=== PATIENT | male | born 1930 | race Caucasian/White ===

== ENCOUNTER 2016-07-20 10:51 | Outpatient (CLI) | payer MEDICARE, OTHER ==
[~2016-07-20] VITALS: Ht 188 cm; Wt 87.0 kg
[~2016-07-20 10:51] MED LIST: ACET-2723 PO; AMLO5TAB2 PO; ASCO500T9 PO; ASPI-1085 PO; BISA10SU8 RECTALLY; CLOP75TA PO; GABA-338 PO; HYDR59LO5 TOP; LISI-621 PO; META800T91 PO; METO-277 PO; MULT-933 PO; MV-M1TAB38 PO; NITR0.4T SL; NORMAL SALINE 1,000 ML IV ONE; NYST8800 TOP; TRAM50TA53 PO; VIT1CAPS5 PO; WARF2.5T73 PO
--- NOTE | 2016-07-20 11:05 | NUR ---
ADMIT PT ADMITTED TO ROOM 118. PT USING URINAL AT THIS TIME. STAFF TO HELP ASSIST THE PATIENT TO THE BED.
[2016-07-20 11:16] VITALS: Ht 188 cm; Wt 87.0 kg
[2016-07-20 11:26] VITALS: BP 141/69; PULSE 60; RESP 21; O2SAT 99
[2016-07-20] MEDS ORDERED: WARF1TAB6 PO (11:36)
[2016-07-20 11:39] LABS: BASOPHILS % (AUTO) 0.4 % (0-2); EOSINOPHILS # (AUTO) 0.4 T/MM3 (0-0.5); EOSINOPHILS % (AUTO) 4.4 % (0-4); HCT - HEMATOCRIT 37.4 % (41-53); HGB - HEMOGLOBIN 11.3 GM/DL (13.5-17.5); IMMATURE GRANULOCYTE # (AUTO) 0.01 T/MM3 (0.00-0.03); IMMATURE GRANULOCYTE % (AUTO) 0.1 % (0.0-0.5); LYMPHOCYTES # (AUTO) 0.9 T/MM3 (1-4.8); LYMPHOCYTES % (AUTO) 10.7 % (23-45); MEAN CORPUSCULAR HGB CONC(MCHC 30.2 GM/DL (31-37); MEAN CORPUSCULAR VOLUME 92.8 UM3 (80-100); MEAN PLATELET VOLUME 10.2 UM3 (9.4-12.4); MONOCYTES # (AUTO) 0.6 T/MM3 (0-0.8); MONOCYTES % (AUTO) 7.6 % (0-9.0); NEUTROPHILS #(AUTO)-ABSOLUTE 6.4 T/MM3 (1.8-7.7); NEUTROPHILS % (AUTO) 76.8 % (33-66); RED BLOOD COUNT 4.03 M/MM3 (4.50-5.90); WBC - WHITE BLOOD COUNT 8.3 T/MM3 (4.5-11.0)
[2016-07-20 11:44] LABS: INR 2.17 (0.76-1.04); PROTHROMBIN TIME 23.6 SEC (9.31-12.49)
[2016-07-20 11:50] LABS: ANION GAP 15 MEQ/L (5-15); BUN/CREATININE RATIO 24 RATIO (6-26); CALCIUM 9.3 MG/DL (8.4-10.2); CHLORIDE 105 MEQ/L (98-107); CO2 - CARBON DIOXIDE 25 MEQ/L (22-30); CREATININE 0.8 MG/DL (0.8-1.5); GLOMERULAR FILTRATION RATE 92; GLUCOSE 94 MG/DL (75-110); POTASSIUM 4.2 MEQ/L (3.6-5); SODIUM 145 MEQ/L (134-144)
--- NOTE | 2016-07-20 13:26 | NUR ---
CM CM IN TO VISIT PATIENT, HE IS A&O. IS AT THE BEDSIDE, ALONG WITH A MALE. PATIENT PLANS TO DISCHARGE HOME, DENIES NEEDS. CM CONTACT INFORMATION GIVEN. Addendum: 07/20/16 at 1327 by TU ELIZABETH RN Amended: Links added.
--- NOTE | 2016-07-20 14:47 | NUR ---
DISMISSAL WENT OVER WRITTEN DISMISSAL INSTRUCTIONS WITH PT, EMPHASIZING DATE AND TIME OF NEXT SCHEDULED PROCEDURE WELL WHEN TO STOP TAKING WARFARIN. BOTH PT AND PT'S VERBALIZED UNDERSTANDING. PT'S PERSONAL BELONGINGS GATHERED INCLUDING HOME MEDS, CELL PHONE. PT TAKEN OUT OF S.U. PER W/C BY [facility] STAFF TO ER ENTRANCE FOR TRANSPORT HOME BY .
== END 2016-07-20 14:47 | disposition home or self-care (01) ==
LOC: CATH 10:51 → SRG 10:53 → CATH 14:47
PROVIDERS: ATTEND Internal Medicine Cardiovascular Disease
DX: I70.201 Unspecified atherosclerosis of native arteries of extremities, right leg (principal); I25.10 Atherosclerotic heart disease of native coronary artery without angina pectoris; I48.0 Paroxysmal atrial fibrillation; I10 Essential (primary) hypertension; Z79.02 Long term (current) use of antithrombotics/antiplatelets; Z79.82 Long term (current) use of aspirin; Z79.899 Other long term (current) drug therapy; Z87.891 Personal history of nicotine dependence; Z82.49 Family history of ischemic heart disease and other diseases of the circulatory system
CPT/HCPCS: 36415; 80048; 85025; 85610; 93005

== ENCOUNTER 2016-08-02 11:10 | Outpatient (CLI) | payer MEDICARE, OTHER ==
[~2016-08-02] VITALS: Ht 188 cm; Wt 89.6 kg
[2016-08-02] VITALS (20 sets, daily range): BP systolic 132–175; BP diastolic 63–105; PULSE 57–71; RESP 17–38; TEMP 97.2–97.3; O2SAT 94–99; Ht 188 cm; Wt 89.6 kg
[~2016-08-02 11:10] MED LIST changes: -ACET-2723 PO; -ASCO500T9 PO; -ASPI-1085 PO; -BISA10SU8 RECTALLY; -HYDR59LO5 TOP; -META800T91 PO; -MULT-933 PO; -MV-M1TAB38 PO; -TRAM50TA53 PO; +WARF1TAB6 PO; -WARF2.5T73 PO
--- NOTE | 2016-08-02 11:18 | NUR ---
ARRIVAL ARRIVES TO ROOM 120 VIA WHEELCHAIR, ACCOMPANIED BY SPOUSE AND SON. PATIENT ALERT AND ORIENTED X3. O2 RA. PATIENT TRANSFERRED FROM WHEELCHAIR TO BED WITH ASSIST X2 FROM NURSING STAFF.
[2016-08-02] MEDS ORDERED: HYDR-4246 PO (11:48)
[2016-08-02] MEDS ORDERED: CHOL100055 PO (11:51)
[2016-08-02 11:52] LABS: HCT - HEMATOCRIT 34.4 % (41-53); HGB - HEMOGLOBIN 10.8 GM/DL (13.5-17.5); MEAN CORPUSCULAR HGB 28.3 UUG (26-34); MEAN CORPUSCULAR HGB CONC(MCHC 31.4 GM/DL (31-37); MEAN CORPUSCULAR VOLUME 90.1 UM3 (80-100); RED BLOOD COUNT 3.82 M/MM3 (4.50-5.90); WBC - WHITE BLOOD COUNT 7.3 T/MM3 (4.5-11.0)
[2016-08-02 12:01] LABS: ANION GAP 13 MEQ/L (5-15); BUN/CREATININE RATIO 26 RATIO (6-26); CALCIUM 9.1 MG/DL (8.4-10.2); CHLORIDE 107 MEQ/L (98-107); CO2 - CARBON DIOXIDE 25 MEQ/L (22-30); CREATININE 0.8 MG/DL (0.8-1.5); GLOMERULAR FILTRATION RATE 92; GLUCOSE 96 MG/DL (75-110); POTASSIUM 4.3 MEQ/L (3.6-5); SODIUM 145 MEQ/L (134-144)
[2016-08-02 12:09] LABS: EOSINOPHILS # (MANUAL) 0.2 T/MM3 (0-0.5); LYMPHOCYTES # (MANUAL) 0.3 T/MM3 (1-4.8); MONOCYTES # (MANUAL) 0.2 T/MM3 (0-0.8); NEUTROPHILS #(MANUAL)-ABSOLUTE 6.2 T/MM3 (1.8-7.7); REACTIVE LYMPHOCYTES # 0.4 T/MM3 (0-0); TOTAL CELLS COUNTED 100 %
[2016-08-02 12:25] LABS: INR 1.39 (0.76-1.04); PROTHROMBIN TIME 15.1 SEC (9.31-12.49)
[2016-08-02] MEDS ORDERED: FENTANYL 100mcg/2ml INJECTION ONE (12:26)
[2016-08-02] MEDS ORDERED: SALINE FLUSH 10ml SYRINGE ONE (12:26)
[2016-08-02] MEDS ORDERED: MIDAZOLAM 2mg/2ml INJECTION ONE (12:26)
--- NOTE | 2016-08-02 12:30 | NUR ---
OFF UNIT PATIENT TRANSFERRED FROM HOSPITAL BED TO [employer] CART VIA SLIDE BOARD AND ASSIST X2 FROM STAFF. IVF INFUSING. O2 RA. FAMILY ACCOMPANIED TO [employer] WAITING AREA.
[2016-08-02] MEDS ORDERED: LORAZEPAM 1 MG TABLET PO PRN (13:30)
[2016-08-02] MEDS ORDERED: MORPHINE SULFATE 4 MG SYRINGE IV PRN ×2 (13:30)
[2016-08-02] MEDS ORDERED: PROMETHAZINE 25 MG INJECTION IV PRN (13:30)
[2016-08-02] MEDS ORDERED: MAG-AL + SIM LIQUID 30 ML UDC PO PRN (13:30)
[2016-08-02] MEDS ORDERED: METOCLOPRAMIDE 10mg/2ml INJECTION IV PRN (13:30)
[2016-08-02] MEDS ORDERED: ONDANSETRON 4mg/2ml INJECTION IV PRN (13:30)
[2016-08-02] MEDS ORDERED: NITROGLYCERIN 0.4 MG SUBLINGUAL TABLET SL PRN ×2 (13:30→14:30)
[2016-08-02] MEDS ORDERED: BISACODYL 10 MG SUPPOSITORY RECTALLY PRN (13:30)
[2016-08-02] MEDS ORDERED: MILK OF MAGNESIA 30 ML SUSP PO PRN (13:30)
[2016-08-02] MEDS ORDERED: ATROPINE 1 MG/ML VIAL IV PRN (13:30)
[2016-08-02] MEDS ORDERED: BISACODYL 5 MG E.C. TABLET PO PRN (13:30)
[2016-08-02] MEDS ORDERED: ACETAMINOPHEN 325 MG TABLET PO PRN (13:30)
[2016-08-02] MEDS ORDERED: LORAZEPAM 2 MG/ML INJECTION IV PRN (13:30)
--- NOTE | 2016-08-02 13:35 | NUR ---
RETURN PATIENT RETURNS TO ROOM 120 VIA CART. PATIENT TRANSFERRED FROM CART TO BED VIA SLIDE BOARD AND ASSIST X2 FROM STAFF. DRESSING TO RIGHT GROIN C/D/I. PEDAL PULSES PRESENT PER DOPPLER. PATIENT DENIES PAIN, SHORTNESS OF AIR, OR CHEST PAIN AT THIS TIME. WILL CONTINUE TO MONITOR.
[2016-08-02] MEDS: HYDROCODONE/APAP 5 mg/325 mg TABLET PO PRN ×2 (14:14→15:08)
--- NOTE | 2016-08-02 14:33 | NUR ---
CM CM VISITED PT AND FAMILY. CM EXPLAINED ROLE AND PROVIDED CONTACT INFORMATION. PT PLANS TO RETURN HOME POST STAY AT [facility]. PT/SPOUSE ARE AWARE TO CONTACT CM IF NEEDS ARISE. SPOUSE DID MENTION THAT BATHING CAN BE A PROCESS BUT SHE FEELS THAT THEY ARE OK FOR NOW BUT WILL CONTACT CM IF THEY CHANGE THERE MIND. CM VERBALIZED.
[2016-08-02] MEDS ORDERED: WARFARIN 1 MG PO SCH (15:02)
[2016-08-02] MEDS: NYSTATIN POWDER 15gm BOTTLE TOP SCH ×2 (15:27→21:00)
--- NOTE | 2016-08-02 15:33 | CVPROF ---
August 02, [address] Sarbjit Stewart INDICATION The patient is a pleasant 68-year-old gentleman with history of peripheral arterial disease and was referred for percutaneous intervention after recent angiography showing high-grade stenosis of the right posterior tibial and peroneal arteries. INFORMED CONSENT Informed consent was obtained after explaining the procedure and the potential risks to the patient who agreed to proceed with the procedure. PROCEDURE 1. Right posterior tibial CISCO NETWORK ARCHITECT. 2. Right peroneal CISCO NETWORK ARCHITECT. 3. Mynx deployment for hemostasis. TECHNIQUE The patient was prepped and draped in the usual sterile techniques. Conscious sedation was performed by using Versed and fentanyl. Using modified Seldinger technique, arterial access was obtained into the right femoral artery in antegrade fashion with placement of a 6-Jamaican arterial sheath. Next, the sheath was exchanged for a 6-Jamaican 45 cm Destination sheath which was delivered into the popliteal artery. The lesion in posterior tibial artery was crossed using a Runthrough wire. A 3.5 x 30 balloon was delivered to the lesion site where it was inflated up to 14 atmospheres. Next angiogram showed excellent results with less than or equal to 20% residual stenosis. Next we exchanged a position of the wire into the distal peroneal artery. Previously used 3.5 x 30 balloon was delivered to the lesion site where it was inflated up to 14 atmospheres. The next angiogram showed excellent results with less than equal 10% residual stenosis. The patient tolerated the procedure well with no complications. Mynx was used for hemostasis. IMPRESSION 1. Successful CISCO NETWORK ARCHITECT of the right posterior tibial artery. 2. Successful CISCO NETWORK ARCHITECT of the right peroneal artery. 3. Successful Mynx deployment for hemostasis. PLAN Will keep him on aspirin daily and continue risk modification. [facility]
--- NOTE | 2016-08-02 19:42 | NUR ---
SHIFT SUMMARY PATIENT ALERT AND ORIENTED X3. DENIES CHEST PAIN, SHORTNESS OF BREATH. VITALS STABLE, O2 RA. PATIENT HAS BEEN FLAT IN BED MOST OF THE AFTERNOON DUE TO HEART CATH PROCEDURE. PATIENT REPOSITIONED WITH ASSIST X2 FROM NURSING STAFF. USES URINAL. PATIENT HAS NEEDED PRN NORCO FOR SOME DISCOMFORT THROUGHOUT SHIFT. SPOUSE AT BEDSIDE. CALL LIGHT WITHIN REACH, SIDE RAILS UP X2, BED IN LOWEST POSITION, AND BED ALARM ACTIVATED.
[2016-08-02] MEDS: PRESER VISION PO SCH (20:58)
[2016-08-02] MEDS: HYDROCODONE/APAP 5 mg/325 mg TABLET PO SCH (20:58)
[2016-08-02] MEDS ORDERED: LISINOPRIL 20 MG PO SCH (22:00)
[2016-08-02] MEDS ORDERED: POM GABAPENTIN 300 MG CAPSULE PO SCH (22:00)
--- NOTE | 2016-08-02 23:50 | NUR ---
Chart Check 24 hour chart check completed
[2016-08-03 04:10] VITALS: BP 164/76; PULSE 60; RESP 18; TEMP 97.9; O2SAT 96
[2016-08-03 05:04] LABS: BASOPHILS % (AUTO) 0.3 % (0-2); EOSINOPHILS # (AUTO) 0.2 T/MM3 (0-0.5); EOSINOPHILS % (AUTO) 2.6 % (0-4); HCT - HEMATOCRIT 34.8 % (41-53); HGB - HEMOGLOBIN 10.5 GM/DL (13.5-17.5); IMMATURE GRANULOCYTE # (AUTO) 0.01 T/MM3 (0.00-0.03); IMMATURE GRANULOCYTE % (AUTO) 0.2 % (0.0-0.5); LYMPHOCYTES # (AUTO) 0.7 T/MM3 (1-4.8); LYMPHOCYTES % (AUTO) 10.5 % (23-45); MEAN CORPUSCULAR HGB 27.6 UUG (26-34); MEAN CORPUSCULAR HGB CONC(MCHC 30.2 GM/DL (31-37); MEAN CORPUSCULAR VOLUME 91.3 UM3 (80-100); MEAN PLATELET VOLUME 10.4 UM3 (9.4-12.4); MONOCYTES # (AUTO) 0.5 T/MM3 (0-0.8); MONOCYTES % (AUTO) 8.2 % (0-9.0); NEUTROPHILS #(AUTO)-ABSOLUTE 5.1 T/MM3 (1.8-7.7); NEUTROPHILS % (AUTO) 78.2 % (33-66); RED BLOOD COUNT 3.81 M/MM3 (4.50-5.90); WBC - WHITE BLOOD COUNT 6.5 T/MM3 (4.5-11.0)
[2016-08-03 05:12] LABS: ANION GAP 11 MEQ/L (5-15); BUN/CREATININE RATIO 26 RATIO (6-26); CALCIUM 8.9 MG/DL (8.4-10.2); CHLORIDE 107 MEQ/L (98-107); CO2 - CARBON DIOXIDE 25 MEQ/L (22-30); CREATININE 0.7 MG/DL (0.8-1.5); GLOMERULAR FILTRATION RATE 107; GLUCOSE 89 MG/DL (75-110); POTASSIUM 4.4 MEQ/L (3.6-5); SODIUM 143 MEQ/L (134-144)
--- NOTE | 2016-08-03 05:36 | NUR ---
SHIFT SUMMARY PATIENT ALERT AND ORIENTED X3. DENIES CP/N/V/SOA. VSS, ON RA. TURNED Q2H. USES URINAL AT BEDSIDE. PT GIVEN NORCO X ONE BEFORE THIS RN TOOK OVER CARE.CARDIAC DIET. RIGHT GROIN DRESSING C/D/I, NO S/S OF BLEEDING OR HEMATOMA. TELEMETRY REMAINS A-FIB. UP WITH ASSIST OF 2 STAND PIVOT TO BSC. IVL IN LEFT FOREARM. DRESSINGS TO BILAT FEET C/D/I. BED LOCKED AND LOW, BED ALARM ON. CALL LIGHT WITHIN REACH. WILL CONTINUE TO MONITOR. AT BEDSIDE.
[2016-08-03 08:06] VITALS: BP 156/76; PULSE 64; RESP 18; TEMP 97.3; O2SAT 96
[2016-08-03 08:07] VITALS: PULSE 64; RESP 18
[2016-08-03] MEDS: HYDROCODONE/APAP 5 mg/325 mg TABLET PO SCH (08:55)
[2016-08-03] MEDS: NYSTATIN POWDER 15gm BOTTLE TOP SCH (08:55)
[2016-08-03] MEDS: PRESER VISION PO SCH (08:57)
[2016-08-03] MEDS ORDERED: POM AMLODIPINE 5 MG TABLET PO SCH (09:00)
[2016-08-03] MEDS ORDERED: POM CLOPIDOGREL 75 MG TABLET PO SCH (09:00)
[2016-08-03] MEDS ORDERED: METOPROLOL 50 MG PO SCH (09:00)
--- NOTE | 2016-08-03 10:20 | NUR ---
DISCHARGE PT DISCHARGED TO HOME AT THIS TIME IN THE COMPANY OF HIS . PT TRANSPORTED TO THE ER ENTRANCE BY WHEELCHAIR AND STAFF. DISCHARGE INSTRUCTIONS INCLUDING DIET, ACTIVITY, MEDICATIONS, FOLLOW UP APPOINTMENT, [facility] CATH INSTRUCTIONS, REPORTABLE S/S AND MYNX CLOSURE DEVICE GIVEN AND REVIEWED WITH PATIENT. PT VERBALIZED UNDERSTANDING OF THESE INSTRUCTIONS AND HAD NO FURTHER QUESTIONS. IVL DISCONTINUED. ARMBAND REMOVED. PERSONAL BELONGINGS AND HOME MEDICATIONS RETURNED.
[2016-08-03] MEDS ORDERED: WARFARIN 1 MG PO SCH (12:00)
--- NOTE | 2016-08-03 15:15 | WOUNDPN ---
Nurse to Nurse Wound Consult Nurse to nurse consult received. RN reports drainage and edema from bilateral lower limbs. Recommendations given: apply calmoseptine to bilateral lower limbs daily, over open areas apply large exudrys and secure in place with kerlix and place av wraps to bilateral lower limbs daily. Elevate lower limbs as much as possible to prevent worsening edema. JAKOB Tomas RN, RN August 02, 2016 17:04
== END 2016-08-03 10:20 | disposition home or self-care (01) ==
LOC: CATH 11:10 → SRG 11:10 → CATH 08-03 10:20
PROVIDERS: ATTEND Internal Medicine Cardiovascular Disease
DX: I70.235 Atherosclerosis of native arteries of right leg with ulceration of other part of foot (principal); L97.511 Non-pressure chronic ulcer of other part of right foot limited to breakdown of skin; I70.245 Atherosclerosis of native arteries of left leg with ulceration of other part of foot; L97.521 Non-pressure chronic ulcer of other part of left foot limited to breakdown of skin; I25.10 Atherosclerotic heart disease of native coronary artery without angina pectoris; I48.0 Paroxysmal atrial fibrillation; I10 Essential (primary) hypertension; Z79.82 Long term (current) use of aspirin; Z79.899 Other long term (current) drug therapy; Z79.02 Long term (current) use of antithrombotics/antiplatelets; Z87.891 Personal history of nicotine dependence; Z82.49 Family history of ischemic heart disease and other diseases of the circulatory system
CPT/HCPCS: 36415; 37228; 80048; 85007; 85025; 85027; 85610; 93005; A9270; C1725; C1760; C1769; C1893; J1644; J2250; J3010; J7030; Q9967

== ENCOUNTER 2016-08-12 16:33 | Emergency (ER) | payer MEDICARE, OTHER ==
[~2016-08-12] VITALS: Ht 188 cm; Wt 92.2 kg
[~2016-08-12 16:33] MED LIST changes: +CHOL100055 PO; +HYDR-4246 PO; -NORMAL SALINE 1,000 ML IV ONE
[2016-08-12 16:35] VITALS: TEMP 98; Ht 188 cm; Wt 92.2 kg
--- OUTSIDE RECORDS SUMMARY | 2016-08-12 16:37 | XMS REPORT | Continuity of Care Document ---
Author Author [facility] Organization [facility] Address Unknown Phone Unavailable Support Name Relationship Address Phone MADALYN PENA MD Caregiver [address] [place] [address] [place] [id number] Unavailable MARIANA WILKINS MD Caregiver [address] [place] [address] Unavailable JABIER DEL CASTILLO Next Of Kin [address] [place] [address] Insurance Providers Guarantor Leo Del Castillo Address [address] [place] [address] Email [email or web address] Payer Medicare Policy Number [id number] Subscriber's Name Leo Del Castillo Relationship 18 Self Payer [employer] Policy Number [id number] Subscriber's Name Leo Del Castillo Relationship 18 Self Advance Directives Directive Response Recorded Date/Time Ordered Resuscitation Status Full Code 07/20/16 6:49am DPOA for Healthcare Only Y JABIER NICHOLAS 07/20/16 11:18am Problems Active Problems Medical Problem Onset Date Status Abdominal pain Unknown Acute Acute cholangitis Unknown Acute Acute respiratory insufficiency Unknown Resolved Ascending cholangitis Unknown Chronic Atrial fibrillation Unknown Chronic Bacteremia Unknown Acute Bacteremia due to Gram-positive bacteria Unknown Acute Cataract Unknown Chronic Cellulitis Unknown Acute Chest pain Unknown Acute Cholelithiasis Unknown Acute Chronic anticoagulation Unknown Chronic Chronic atrial fibrillation Unknown Chronic Chronic foot ulcer Unknown Chronic Complicated UTI (urinary tract infection) Unknown Acute Complicated wound infection Unknown Acute Debility Unknown Acute Dyspnea Unknown Acute Edema Unknown Foot pain, right Unknown Acute Foot ulcer Unknown Acute Foot ulceration Unknown Acute GERD (gastroesophageal reflux disease) Unknown Chronic Gait instability Unknown Acute Hard of hearing Unknown Chronic Headache Unknown Chronic Hypertension Unknown Chronic Midepigastric pain Unknown Acute Mitral valve prolapse Unknown Chronic Overweight (BMI 25.0-29.9) Unknown Chronic PAT (paroxysmal atrial tachycardia) Unknown Chronic PVD (peripheral vascular disease) Unknown Chronic Peripheral edema Unknown Chronic Severe sepsis with acute organ dysfunction Unknown Resolved Valvular heart disease Unknown Chronic Past Problems Medical Problem Onset Date Sepsis Unknown Medications Current Home Medications Medication Dose Units Route Directions Days Qty Instructions Start Date Amlodipine Besylate 5 Mg Tablet 5 Mg Oral Daily 02/22/16 Clopidogrel Bisulfate (Plavix) 75 Mg Tablet 75 Mg Oral Daily 30 Days 30 Tablet 05/18/16 Gabapentin 300 Mg Capsule 1 Cap Oral Bedtime 05/14/16 Lisinopril 20 Mg Tablet 20 Mg Oral Bedtime 30 Tablet 03/03/16 Metoprolol Succinate 50 Mg Tab.er.24h 50 Mg Oral Daily 08/13/14 Nitroglycerin (Nitrostat) 0.4 Mg Tablet 0.4 Mg Sublingual Every 5 Minutes as needed for Chest Pain 10 Tablet 03/03/16 Nystatin 1 Each Powder.ea. 1 Applic Topically Three Times A Day Apply powder three times daily to affected area. 05/14/16 Vit A/Vit C/Vit E/Zinc/Copper (Preservision Areds Softgel) 1 Each Capsule 1 Tab Oral Twice A Day 08/13/14 Warfarin Sodium 1 Mg Tablet 1 Tab Oral Daily 90 Tablet 3MG ON TUE, , , SAT 4MG ON MON, TUE, Tue07/20/16 Past Home Medications Medication Directions Ordered Status Hydrocodone/Acetaminophen (Hydrocodon-Acetaminoph 7.5-325) 1 Each Tablet, 1 Tab Oral Three Times A Day as needed for Pain 08/13/14 Discontinued Warfarin Sodium 1 Mg Tablet, 3 Mg Oral 4 Times A Week 02/22/16 Discontinued Warfarin Sodium 1 Mg Tablet, 4 Mg Oral 3 Times A Week 02/22/16 Discontinued Warfarin Sodium 1 Mg Tablet, 4 Tab Oral Daily 08/13/14 Discontinued Social History Social History Problem Response Recorded Date/Time Onset Date Status Reason for Hospitalization BINDERY CHIEF to right tibial artery 07/20/2016 2:11pm Not Applicable Not Applicable Hx Substance Use No 07/19/2016 9:09am Not Applicable Not Applicable Hx Alcohol Use Y ONCE A WEEK 07/19/2016 9:09am Not Applicable Not Applicable Has the pt used tobacco in the last 12 months Yes 07/19/2016 9:09am Not Applicable Not Applicable Tobacco Usage none 08/21/2014 12:07am Not Applicable Not Applicable Query Response Start Date Stop Date Smoking Status Unknown if ever smoked Hospital Discharge Instructions Instructions: Care Instructions: I was in the hospital because (patient own words): SUPPOSED TO HAVE A BALLOON JOB ON MY RT LEG Discharge Diet: Resume heart healthy diet Discharge Activity: May resume usual activity as tolerated. Follow Up Appointments: Check in for Stent of right tibia on 08/02/16 at 11:30. Stop warfarin 3 days prior. Follow up with Dr. Pena on: 08/10/16 at 8:40 Pending Lab / Results: No Pending Lab Patient Instructions: NA Expected Signs/Symptoms: NA Notify Physician If: NA During Business Hours:: Call Dr. Pena's office at [phone]. After Business Hours:: Please call [phone] and have the draw bench operator helper page the physician. Pain Management/Treatment: Over the counter pain medication if needed. Wound/Incision Care: NA Condition at time of discharge: Good Plan of Care Discharge Date 07/20/16 2:47pm Prescriptions See Medication Section Functional Status Query Response Date Recorded Mobility Status Transfer w/assist July 20, 2016 11:30am Assistive Devices Wheelchair July 20, 2016 11:30am Activity Limitations Weakness Fatigue July 20, 2016 11:30am Feeding Ability Independent July 20, 2016 11:30am Toileting Ability Assist July 20, 2016 11:30am Grooming Ability Assist July 20, 2016 11:30am Dressing Ability Assist July 20, 2016 11:30am Driving Ability Dependent July 20, 2016 11:30am Housework Ability Dependent July 20, 2016 11:30am Meal Preparation Ability Dependent July 20, 2016 11:30am Stair Climbing Ability Dependent July 20, 2016 11:30am Ability to complete ADL's impeded by No change July 20, 2016 11:30am Cognitive/Perceptual Impairments Impaired hearing July 20, 2016 11:30am Visual Assistive Devices Glasses With patient July 20, 2016 11:30am Preferred Method of Learning Demonstration Listening Hands on July 20, 2016 11:30am Allergies, Adverse Reactions, Alerts Allergen Type Severity Reaction Status Last Updated NKDA Allergy Unknown Active 07/20/16 Immunizations Query Response on File Recorded Date/Time Hx Influenza Vaccination Y dec 2015 07/19/16 9:09am Hx Pneumococcal Vaccination Y 3-4 years ago 07/19/16 9:09am Hx Influenza Vaccination Y dec 2015 07/19/16 9:09am Influenza Vaccine Hx 12/201505/17/16 11:40am Vital Signs Acute Vital Signs Vital Response Date/Time Temperature (Fahrenheit) 97.7 deg F (96.8 - 99.1) 05/18/2016 7:15am Temperature (Calculated Celsius) 36.71013 degrees C (36.0 - 37.3) 05/18/2016 7:15am Temperature Source Oral 05/18/2016 7:15am Pulse Rate (adult) 58 bpm (60 - 100) 05/18/2016 7:15am Respiratory Rate 16 breaths/min (10 - 20) 05/18/2016 7:15am O2 Sat by Pulse Oximetry 96 % (90 - 100) 05/18/2016 7:15am Oxygen Delivery Method Room Air 05/18/2016 7:15am Oxygen Delivery Method Room Air 05/17/2016 11:41am Blood Pressure 160/74 mm Hg 05/18/2016 7:15am Blood Pressure Source Automatic Cuff 05/18/2016 7:15am Height (Feet) 6 feet 07/20/2016 11:16am Height (Inches) 2.00 inches 07/20/2016 11:16am Weight (Kilograms) 87.000 kg 07/20/2016 11:17am Body Mass Index (BMI) 24.6 07/20/2016 11:16am Results Laboratory Results Test Name Result Units Flags Reference Collection Date/Time Result Date/ Time Comments White Blood Count 8.3 T/MM3 4.5-11.0 07/20/2016 11:am 07/20/2016 11: 39am Red Blood Count 4.03 M/MM3 L 4.50-5.90 07/20/2016 11:am 07/20/2016 11: 39am Hemoglobin 11.3 GM/DL L 13.5-17.5 07/20/2016 11:07/20/2016 11:39am Hematocrit 37.4 % L 41-53 07/20/2016 11:07/20/2016 11:39am Mean Corpuscular Volume 92.8 UM3 80-100 07/20/2016 11:07/20/2016 11:39am Mean Corpuscular Hemoglobin 28.0 UUG 26-34 07/20/2016 11:am 2016 11:39am Mean Corpuscular Hemoglobin Concent 30.2 GM/DL L 31-37 07/20/2016 11: am 07/20/2016 11:39am RDW Standard Deviation 49.7 FL 36.9-50.2 07/20/2016 11:07/20/2016 11:39am Platelet Count 208 T/MM3 130-400 07/20/2016 11:07/20/2016 11:39am Mean Platelet Volume 10.2 UM3 9.4-12.4 07/20/2016 11:07/20/2016 11 :39am Neutrophils (%) (Auto) 76.8 % H 33-66 07/20/2016 11:07/20/2016 11: 39am Lymphocytes (%) (Auto) 10.7 % L 23-45 07/20/2016 11:07/20/2016 11: 39am Monocytes (%) (Auto) 7.6 % 0-9.0 07/20/2016 11:07/20/2016 11:39am Eosinophils (%) (Auto) 4.4 % H 0-4 07/20/2016 11:07/20/2016 11: 39am Basophils (%) (Auto) 0.4 % 0-2 07/20/2016 11:07/20/2016 11:39am Immature Granulocyte % (Auto) 0.1 % 0.0-0.5 07/20/2016 11:2016 11:39am Absolute Neutrophils (auto) 6.4 T/MM3 1.8-7.7 07/20/2016 11:2016 11:39am Absolute Lymphocytes (auto) 0.9 T/MM3 L 1-4.8 07/20/2016 11:2016 11:39am Absolute Monocytes (auto) 0.6 T/MM3 0-0.8 07/20/2016 11:2016 11:39am Absolute Eosinophils (auto) 0.4 T/MM3 0-0.5 07/20/2016 11:2016 11:39am Absolute Basophils (auto) 0.0 T/MM3 0-0.2 07/20/2016 11:2016 11:39am Absolute Immature Granulocyte (auto 0.01 T/MM3 0.00-0.03 07/20/2016 11: 07/20/2016 11:39am Prothromb Time International Ratio 2.17 H 0.76-1.04 07/20/2016 11:07/20/2016 11:44am THERAPUTIC RANGE=2.00-3.00 FOR ANTI-THROMBOSIS THERAPUTIC RANGE=2.50-3.50 FOR IMPLANTED VALVE Icterus Index < 2 0-7 07/20/2016 11:07/20/2016 11:50am Chemistry Specimen Hemolysis < 15 0-25 07/20/2016 11:07/20/2016 11:50am 0-25: Specimen Exhibited No Hemolysis. Turbidity < 20 0-20 07/20/2016 11:07/20/2016 11:50am Sodium Level 145 MEQ/L H 134-144 07/20/2016 11:07/20/2016 11:50am Potassium Level 4.2 MEQ/L 3.6-5 07/20/2016 11:07/20/2016 11:50am Chloride Level 105 MEQ/L 98-107 07/20/2016 11:07/20/2016 11:50am Carbon Dioxide Level 25 MEQ/L 22-30 07/20/2016 11:07/20/2016 11: 50am Anion Gap 15 MEQ/L 5-15 07/20/2016 11:07/20/2016 11:50am Blood Urea Nitrogen 19.0 MG/DL 9-07/20/2016 11:07/20/2016 11: 50am Creatinine 0.8 MG/DL 0.8-1.5 07/20/2016 11:07/20/2016 11:50am BUN/Creatinine Ratio 24 RATIO 6-26 07/20/2016 11:07/20/2016 11: 50am Glomerular Filtration Rate Calc 92 07/20/2016 11:07/20/2016 11 :50am Glucose Level 94 MG/DL 75-110 07/20/2016 11:07/20/2016 11:50am Calculated Osmolality 281 MOSM/KG H 261-280 07/20/2016 11:2016 11:50am Calcium Level 9.3 MG/DL 8.4-10.2 07/20/2016 11:07/20/2016 11:50am Procedures Procedure Status Date Provider(s) Ins cath abd/l-ext art 3rd Completed 05/17/16 Routine venipuncture Completed 05/17/16 Routine venipuncture Completed 05/17/16 Fem/popl revas w/tla Completed 05/17/16 MADALYN PENA MD Contrast exam abdominl aorta Completed 05/17/16 Artery x-rays arms/legs Completed 05/17/16 Metabolic panel total ca Completed 05/17/16 Metabolic panel total ca Completed 05/17/16 Complete cbc w/auto diff wbc Completed 05/17/16 Complete cbc w/auto diff wbc Completed 05/17/16 Prothrombin time Completed 05/17/16 Electrocardiogram tracing Completed 05/17/16 [id number] ITEM OR SERVICE Completed 05/17/16 815023WMG-GUSMNES ITEM OR SERVICE Completed 05/17/16 [id number] ITEM OR SERVICE Completed 05/17/16 920135ZXK-OIWFFIZ ITEM OR SERVICE Completed 05/17/16 [id number] ITEM OR SERVICE Completed 05/17/16 829822DUZ-BLFMPUA ITEM OR SERVICE Completed 05/17/16 477018KKO-EDEPATE ITEM OR SERVICE Completed 05/17/16 297938LWH-JVWZEEG ITEM OR SERVICE Completed 05/17/16 573223ZGH-XEWQHRG ITEM OR SERVICE Completed 05/17/16 [id number]-FRZRXZN ITEM OR SERVICE Completed 05/17/16 [id number]-ZYHJGMC ITEM OR SERVICE Completed 05/17/16 [id number]-WLLUIRL ITEM OR SERVICE Completed 05/17/16 257531XDS-ZMRMCUL ITEM OR SERVICE Completed 05/17/16 586476REQ-UKSBLWQ ITEM OR SERVICE Completed 05/17/16 029024"CLOSURE DEVICE, VASCULAR (IMPLANTABLE/INSERTABLE)" Completed 05/17/16 [id number] WIRE Completed 05/17/16 778253CCPBA THAN PEEL-AWAY Completed 05/17/16 337735NPFKK THAN PEEL-AWAY Completed 05/17/16 BALLOON ROHITH [id number] Completed 05/17/16 097380"INJECTION, HEPARIN SODIUM, PER 1000 UNITS" Completed 05/17/16 416507"INJECTION, HEPARIN SODIUM, PER 1000 UNITS" Completed 05/17/16 823962"INJECTION, MIDAZOLAM HYDROCHLORIDE, PER 1 MG" Completed 05/17/16 075585"INJECTION, FENTANYL CITRATE, 0.1 MG" Completed 05/17/16 833967"LOW OSMOLAR CONTRAST MATERIAL, 300-399 MG/ML IODINE C Completed 624179"LOW OSMOLAR CONTRAST MATERIAL, 300-399 MG/ML IODINE C Completed Encounters Encounter Location Arrival/Admit Date [facility] 07/20/16 2:47pm [facility] 11:06am 05/18/16 11:43am MADALYN PENA MD
--- OUTSIDE RECORDS SUMMARY | 2016-08-12 16:37 | XMS REPORT | Continuity of Care Document ---
Author Author [facility] Organization [facility] Address Unknown Phone Unavailable Support Name Relationship Address Phone ELVIA MARTINEZ MD Caregiver [address] [place] [address] Unavailable ELVIA MARTINEZ MD Caregiver [address] [place] [address] Unavailable MARIANA CYR MD Caregiver [address] [place] [address] Unavailable HUSSEIN CARLOS MD Caregiver [address] [place] [address] [place] [address] Unavailable JABIER DEL CASTILLO Next Of Kin [address] [place] [address] Insurance Providers Guarantor AbundioLeo Address [address] [place] [address] Email [email or web address] Medicare Policy Number [id number] Subscriber's Name Leo Del Castillo Relationship 18 Self Payer Standard Life & Acc Policy Number [id number] Subscriber's Name Leo Del Castillo Relationship 18 Self Advance Directives Directive Response Recorded Date/Time Ordered Resuscitation Status Do Not Resuscitate 02/22/16 6:30pm Resuscitation Documents on File N pt wishes to be DNR 02/22/16 6:04pm DPOA for Healthcare Only Y Jabier- 02/23/16 9:11am Problems Active Problems Medical Problem Onset Date [...] Route Directions Days Qty Instructions Start Date Acetaminophen (Tylenol) 325 Mg Tablet 325-650 Mg Oral Every 5 Hours as needed for Discomfort 30 Tablet 03/03/16 Amlodipine Besylate 5 Mg Tablet 5 Mg Oral Daily 02/22/16 Bisacodyl 10 Mg Supp.rect 10 Mg Rectally Daily as needed for Constipation 7 03/03/16 Cefazolin Sodium In 0.9 % Nacl (Cefazolin 2 G/100 Ml-0.9% Nacl) 2 Gm/100 Ml Plast..bag 2 G Intraven Every 8 Hours 36 Days 10 g IV every 8 hours through 04/07/2016 03/03/16 Cholecalciferol (Vitamin D3) (Vitamin D) 2,000 Unit Capsule 1 Cap Oral Daily 02/22/16 Hydrocodone/Acetaminophen (Burnet 5-325 Tablet) 5-325 Tablet 1-2 Tab Oral Every 4 Hours as needed for Pain 30 Tablet 03/03/16 Lisinopril 20 Mg Tablet 20 Mg Oral Bedtime 30 Tablet 03/03/16 Metoprolol Succinate 50 Mg Tab.er.24h 50 Mg Oral Daily 08/13/14 Nitroglycerin (Nitrostat) 0.4 Mg Tablet 0.4 Mg Sublingual Every 5 Minutes as needed for Chest Pain 10 Tablet 03/03/16 Nystatin 50,000,000 Unit Powder.ea. 1 Applic Topically Three Times A Day 1 Bottle 03/03/16 Vit A/Vit C/Vit E/Zinc/Copper (Preservision Areds Softgel) 1 Each Capsule 1 Tab Oral Twice A Day 08/13/14 Warfarin Sodium 2.5 Mg Tablet 2.5 Mg Oral 1700 30 Tablet Take 1 tablet , by mouth, 1 time a day (at 5 pm). This will likely need to be adjusted based on INR 03/03/16 Past Home Medications Medication Directions Ordered Status [...] Date/Time Onset Date Status Reason for Hospitalization necrotic right foot wound with osteomyelitis, sepsis 03/03/2016 2:47pm Not Applicable Not Applicable Chewing Tobacco Status Yes 02/22/2016 3:06pm Not Applicable Not Applicable Hx Substance Use No 02/22/2016 3:06pm Not Applicable Not Applicable Hx Alcohol Use Y ONCE A WEEK 02/22/2016 3:06pm Not Applicable Not Applicable Has the pt used tobacco in the last 12 months Yes 02/22/2016 6:08pm Not Applicable Not Applicable Tobacco Usage none 08/21/2014 12:07am Not Applicable Not Applicable Query Response Start Date Stop Date Smoking Status Former smoker Hospital Discharge Instructions Instructions: Care Instructions: Reason for Hospitalization: necrotic right foot wound with osteomyelitis, sepsis I was in the hospital because (patient own words): "because 2 nurses, my , and a friend said I had to come" Discharge Diet: regular diet Discharge Activity: Patient may be weightbearing for transfer but should not walk due to bilateral foot wounds Follow Up Appointments: Follow-up with Dr. Mariana Cyr PCP, Dr.Dr. Ricci and Dr. Schultz after discharge from swing bed Pending Lab / Results: No Pending Lab Patient Instructions: INR and basic metabolic profile 03/04/2016 for medication monitoring on warfarin and recent increase in lisinopril. CBC with differential, CMP, C-reactive protein, and sedimentation rate every Tuesday while on IV antibiotics. Fax results to Dr. Karla Schultz at [phone]. Routine PICC line care Ancef 2 g IV every 8 hours through 04/07/2016 Wound/Incision Care: Aquacel and Allevyn foam dressing to each wound. This will need to be changed on roughly an every 3-day basis depending upon the amount of drainage that is present. Per Dr Ricci, could consider placing him in some CAM walkers to perhaps provide some offloading to the lateral aspect of his feet during the process of transfer. Pain Management/Treatment: Lortab as needed Expected Signs/Symptoms: n/a Notify Physician If: n/a During Business Hours:: n/a After Business Hours:: n/a Condition at time of discharge: Fair Plan of Care Discharge Date 03/03/16 5:19pm Disposition 61 TO ANY SWING BED Instructions/Education Provided [facility] PICC Discharge Instruction DI for Cellulitis -- Adult DI for Sepsis -- Adult Warfarin DI for Warfarin Therapy Prescriptions See Medication Section Additional Instructions/Education INR as directed by Dr. Reed to monitor patient on warfarin. CBC with differential, CMP, C-reactive protein, and sedimentation rate once weekly (Tuesday or Tuesday) while the patient is on IV antibiotics. Fax to Dr. Schultz [phone] Blood pressure medications may need to be adjusted. Lisinopril was increased to 20 mg 2 days ago. Care Plan and Goals See Discharge Instructions Section Functional Status Query Response Date Recorded Mobility Status Transfer w/assist March 03, 2016 2:47pm Assistive Devices Wheelchair March 03, 2016 2:47pm Activity Limitations Weakness March 03, 2016 2:47pm Feeding Ability Independent March 03, 2016 2:47pm Toileting Ability Dependent March 03, 2016 2:47pm Grooming Ability Independent March 03, 2016 2:47pm Dressing Ability Dependent March 03, 2016 2:47pm Driving Ability Dependent March 03, 2016 2:47pm Housework Ability Dependent March 03, 2016 2:47pm Meal Preparation Ability Dependent March 03, 2016 2:47pm Stair Climbing Ability Dependent March 03, 2016 2:47pm Ability to complete ADL's impeded by Impaired Mobility March 03, 2016 2:47pm Cognitive/Perceptual Impairments Impaired vision Impaired hearing March 03, 2016 2:47pm Visual Assistive Devices Glasses March 02, 2016 4:54pm Preferred Method of Learning Demonstration Listening March 02, 2016 4:54pm Allergies, Adverse Reactions, Alerts Allergen Type Severity Reaction Status Last Updated NKDA Allergy Unknown Active 02/22/16 Immunizations Query Response on File Recorded Date/Time Hx Influenza Vaccination Y dec 2015 02/22/16 6:08pm Hx Pneumococcal Vaccination Y 3-4 years ago 02/22/16 6:08pm Hx Influenza Vaccination Y dec 2015 02/22/16 6:08pm Influenza Vaccine Hx dec 2015 02/25/16 12:00pm Vital Signs Acute Vital Signs Vital Response Date/Time Temperature (Fahrenheit) 96.3 deg F (96.8 - 99.1) 03/03/2016 12:17pm Temperature (Calculated Celsius) 35.50821 degrees C (36.0 - 37.3) 03/03/2016 12:17pm Temperature Source Oral 02/26/2016 7:59pm Pulse Rate (adult) 66 bpm (60 - 100) 03/03/2016 12:17pm Respiratory Rate 18 breaths/min (10 - 20) 03/03/2016 12:17pm O2 Sat by Pulse Oximetry 92 % (90 - 100) 03/03/2016 12:17pm Oxygen Delivery Method Room Air 02/26/2016 7:59pm Oxygen Delivery Method Room Air 03/03/2016 12:17pm Blood Pressure 167/81 mm Hg 03/03/2016 12:51pm Blood Pressure Source Automatic Cuff 03/03/2016 12:51pm Height (Feet) 6 feet 03/03/2016 9:14am Height (Inches) 2.00 inches 03/03/2016 9:14am Weight (Kilograms) 98.700 kg 03/03/2016 7:18am Body Mass Index (BMI) 27.3 02/22/2016 5:18pm Results Laboratory Results Test Name Result Units Flags Reference Collection Date/Time Result Date/ Time Comments White Blood Count 9.9 T/MM3 4.5-11.0 03/01/2016 4:50am 03/01/2016 5: 17am Red Blood Count 4.14 M/MM3 L 4.50-5.90 03/01/2016 4:50am 03/01/2016 5: 17am Hemoglobin 11.1 GM/DL L 13.5-17.5 03/01/2016 4:50am 03/01/2016 5:17am Hematocrit 36.7 % L 41-53 03/01/2016 4:50am 03/01/2016 5:17am Mean Corpuscular Volume 88.6 UM3 80-100 03/01/2016 4:50am 03/01/2016 5: 17am Mean Corpuscular Hemoglobin 26.8 UUG 26-34 03/01/2016 4:50am 2015 5:17am Mean Corpuscular Hemoglobin Concent 30.2 GM/DL L 31-37 03/01/2016 4:50am 03/01/2016 5:17am RDW Standard Deviation 48.9 FL 36.9-50.2 03/01/2016 4:50am 03/01/2016 5 :17am Platelet Count 215 T/MM3 130-400 03/01/2016 4:50am 03/01/2016 5:17am Mean Platelet Volume 10.3 UM3 9.4-12.4 03/01/2016 4:50am 03/01/2016 5: 17am Neutrophils (%) (Auto) 76.9 % H 33-66 03/01/2016 4:50am 03/01/2016 5: 17am Lymphocytes (%) (Auto) 11.7 % L 23-45 03/01/2016 4:50am 03/01/2016 5: 17am Monocytes (%) (Auto) 8.1 % 0-9.0 03/01/2016 4:50am 03/01/2016 5:17am Eosinophils (%) (Auto) 2.6 % 0-4 03/01/2016 4:50am 03/01/2016 5:17am Basophils (%) (Auto) 0.4 % 0-2 03/01/2016 4:50am 03/01/2016 5:17am Immature Granulocyte % (Auto) 0.3 % 0.0-0.5 03/01/2016 4:50am 2015 5:17am Absolute Neutrophils (auto) 7.6 T/MM3 1.8-7.7 03/01/2016 4:50am 2015 5:17am Absolute Lymphocytes (auto) 1.2 T/MM3 1-4.8 03/01/2016 4:50am 2015 5:17am Absolute Monocytes (auto) 0.8 T/MM3 0-0.8 03/01/2016 4:50am 03/01/2016 5:17am Absolute Eosinophils (auto) 0.3 T/MM3 0-0.5 03/01/2016 4:50am 2015 5:17am Absolute Basophils (auto) 0.0 T/MM3 0-0.2 03/01/2016 4:50am 03/01/2016 5:17am Absolute Immature Granulocyte (auto 0.03 T/MM3 0.00-0.03 03/01/2016 4: 50am 03/01/2016 5:17am Neutrophils % (Manual) 78.0 % H 33-66 02/24/2016 4:37am 02/24/2016 6: 19am Band Neutrophils % 8.0 % H 0-6 02/24/2016 4:37am 02/24/2016 6:19am Lymphocytes % (Manual) 1.0 % L 23-45 02/24/2016 4:37am 02/24/2016 6: 19am Monocytes % (Manual) 8.0 % 0-9.0 02/24/2016 4:37am 02/24/2016 6:19am Eosinophils % (Manual) 5.0 % H 0-4 02/24/2016 4:37am 02/24/2016 6:19am Band Neutrophils # 0.8 T/MM3 02/24/2016 4:37am 02/24/2016 6:19am Absolute Neutrophils (Manual) 7.7 T/MM3 1.8-7.7 02/24/2016 4:37am 02/23 6:19am Lymphocytes # (Manual) 0.1 T/MM3 L 1-4.8 02/24/2016 4:37am 02/24/2016 6: 19am Monocytes # (Manual) 0.8 T/MM3 0-0.8 02/24/2016 4:37am 02/24/2016 6: 19am Eosinophils # (Manual) 0.5 T/MM3 0-0.5 02/24/2016 4:37am 02/24/2016 6: 19am Red Cell Morphology Comment NORMAL 02/24/2016 4:37am 02/24/2016 6: 19am Prothromb Time International Ratio 2.49 H 0.76-1.04 03/03/2016 4:36am 03/03/2016 5:38am THERAPUTIC RANGE=2.00-3.00 FOR ANTI-THROMBOSIS THERAPUTIC RANGE=2.50-3.50 FOR IMPLANTED VALVE Icterus Index < 2 0-7 03/01/2016 4:50am 03/01/2016 5:35am Chemistry Specimen Hemolysis < 15 0-25 03/01/2016 4:50am 03/01/2016 5 :35am 0-25: Specimen Exhibited No Hemolysis. Turbidity < 20 0-20 03/01/2016 4:50am 03/01/2016 5:35am Sodium Level 144 MEQ/L 134-144 03/01/2016 4:50am 03/01/2016 5:35am Potassium Level 3.7 MEQ/L 3.6-5 03/01/2016 4:50am 03/01/2016 5:35am Chloride Level 104 MEQ/L 98-107 03/01/2016 4:50am 03/01/2016 5:35am Carbon Dioxide Level 28 MEQ/L 22-30 03/01/2016 4:50am 03/01/2016 5: 35am Anion Gap 12 MEQ/L 5-15 03/01/2016 4:50am 03/01/2016 5:35am Blood Urea Nitrogen 10.0 MG/DL 9-20 03/01/2016 4:50am 03/01/2016 5: 35am Creatinine 0.7 MG/DL L 0.8-1.5 03/01/2016 4:50am 03/01/2016 5:35am BUN/Creatinine Ratio 14 RATIO 6-26 03/01/2016 4:50am 03/01/2016 5:35am Glomerular Filtration Rate Calc 107 03/01/2016 4:50am 03/01/2016 5: 35am Glucose Level 96 MG/DL 75-110 03/01/2016 4:50am 03/01/2016 5:35am Calculated Osmolality 276 MOSM/KG 261-280 03/01/2016 4:50am 03/01/2016 5:35am Calcium Level 8.5 MG/DL 8.4-10.2 03/01/2016 4:50am 03/01/2016 5:35am Total Bilirubin 0.90 MG/DL 0.20-1.30 02/27/2016 5:16am 02/27/2016 5: 53am Alkaline Phosphatase 179 U/L H 38-126 02/27/2016 5:16am 02/27/2016 5: 53am Total Protein 6.9 G/DL 6.3-8.2 02/27/2016 5:16am 02/27/2016 5:53am Albumin 3.2 G/DL L 3.5-5.0 02/27/2016 5:16am 02/27/2016 5:53am Globulin 3.7 G/DL H 2.4-3.6 02/27/2016 5:16am 02/27/2016 5:53am Albumin/Globulin Ratio 0.9 RATIO L 1.1-2.2 02/27/2016 5:16am 02/27/2016 5:53am Aspartate Amino Transf (AST/SGOT) 24 U/L 17-59 02/27/2016 5:16am 2015 5:53am Alanine Aminotransferase (ALT/SGPT) 33 U/L 21-72 02/27/2016 5:16am 11/2015 5:53am Magnesium Level 2.0 MG/DL 1.6-2.3 02/29/2016 4:28am 02/29/2016 5:41am Plasma Lactate 1.5 MMOL/L 0.6-2.2 02/23/2016 1:24am 02/23/2016 1:52am Procalcitonin 8.80 NG/ML *H 02/25/2016 6:05am 02/25/2016 7:51am PCT </ =0.5 ng/mL - sepsis not likely; PCT >0.5 and </=2 ng/mL - sepsis possible; PCT >2 ng/mL - sepsis likely; PCT >/=10 ng/mL - systemic inflammatory response - sepsis or septic shock highly indicated. Vancomycin Level Trough 19.61 UG/ML 15-20 02/27/2016 9:24am 02/27/2016 9:56am Urine Collection Type VOIDED-NOT CC-MIDSTR 02/22/2016 2:58pm 2015 3:05pm Urine Color YELLOW YELLOW 02/22/2016 2:58pm 02/22/2016 3:05pm Urine Turbidity SL CLOUDY CLEAR 02/22/2016 2:58pm 02/22/2016 3:05pm Urine Specific [place] >=1.030 H 1.015-1.025 02/22/2016 2:58pm 2015 3:05pm Urine pH 5.0 5.0-8.0 02/22/2016 2:58pm 02/22/2016 3:05pm Urine Leukocyte Esterase 2+ A NEGATIVE 02/22/2016 2:58pm 02/22/2016 3: 05pm Urine Nitrite POSITIVE A NEGATIVE 02/22/2016 2:58pm 02/22/2016 3:05pm Urine Protein 2+ A NEGATIVE 02/22/2016 2:58pm 02/22/2016 3:05pm Urine Glucose (UA) NEGATIVE NEGATIVE 02/22/2016 2:58pm 02/22/2016 3: 05pm Urine Ketones TRACE A NEGATIVE 02/22/2016 2:58pm 02/22/2016 3:05pm Urine Urobilinogen 1.0 EU/DL NORMAL 02/22/2016 2:58pm 02/22/2016 3: 05pm Urine Bilirubin 1+ A NEGATIVE 02/22/2016 2:58pm 02/22/2016 3:05pm Urine Blood 3+ A NEGATIVE 02/22/2016 2:58pm 02/22/2016 3:05pm Urine WBC 50-200 /HPF H 0-5 02/22/2016 2:58pm 02/22/2016 3:16pm Urine RBC 1-3 /HPF 0-3 02/22/2016 2:58pm 02/22/2016 3:16pm Urine Bacteria 3+ H NEGATIVE 02/22/2016 2:58pm 02/22/2016 3:16pm Urine Culture Indicated CULT REFLEXED &SETUP 02/22/2016 2:58pm 06/2015 3:16pm Glucometer 131 mg/dL H 75-110 02/26/2016 12:22pm 02/27/2016 5:18am Microbiology Results Procedure Source Organism/Result Collection Date/Time Result Date/Time Result Status Urine Culture Urine, Voided-Not Cc-Midstream ESCHERICHIA COLI 02/22/2016 3: 16pm 02/24/2016 6:59am Final WOUND CULTURE DEEP TISS-AER/AN Foot, Non-Surgical Site, Right S. AUREUS, METH -RESISTANT 02/23/2016 7:41pm 02/28/2016 6:42am Final STREP AGALACTIAE - (GROUP B) 02/23/2016 7:41pm 02/28/2016 6:42am Final Blood Culture Peripheral/Iv Start NO GROWTH AFTER 5 DAYS 02/24/2016 5:50pm 02/29/2016 5:55pm Final Surgical Culture Foot, Surgical Site, Right STAPHYLOCOCCUS AUREUS 2015 2:46pm 02/28/2016 1:52pm Final Name: LEO DEL CASTILLO Unit #: [id number] : 1930 Sex: M DISCHARGE SUMMARY Admit Date: 02/22/16 Report #: [id number] [facility] General Date Date DATE: 03/03/16 TIME: 14:02 Attending Physician Elvia Martinez MD Admitting Physician Elvia Martinez MD Consulting Physician Karla Schultz MD Admitting Diagnosis Severe sepsis, foot wound Discharge Diagnosis Severe sepsis Septicemia with blood cultures positive for MSSA and group B strep on 2015. 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 fib chronic Chronic anticoagulation with Coumadin for atrial fibrillation Hypertension, lisinopril added this hospitalization. Further increases in blood pressure medication may be needed Possible depression Acute hypoxic respiratory failure resolved Procedures 02/26/2016 excisional surgical debridement of necrotic skin, subcutaneous tissue , fascia and bone (fifth metatarsal head) from ulcerations involving the feet. Laboratory Item Value Date Time Turbidity < 20 03/01/16 0450 Sodium Level 144 MEQ/L 03/01/16 0450 Potassium Level 3.7 MEQ/L 03/01/16 0450 Chloride Level 104 MEQ/L 03/01/16 0450 Carbon Dioxide Level 28 MEQ/L 03/01/16 0450 Anion Gap 12 MEQ/L 03/01/16 0450 Blood Urea Nitrogen 10.0 MG/DL 03/01/16 0450 Creatinine 0.7 MG/DL L 03/01/16 0450 Glomerular Filtration Rate Calc 107 03/01/16 0450 BUN/Creatinine Ratio 14 RATIO 03/01/16 0450 Glucose Level 96 MG/DL 03/01/16 0450 Calculated Osmolality 276 MOSM/KG 03/01/16 0450 Calcium Level 8.5 MG/DL 03/01/16 0450 Icterus Index < 2 03/01/16 0450 Chemistry Specimen Hemolysis < 15 03/01/16 0450 Total Bilirubin 0.90 MG/DL 02/27/16 0516 Icterus Index < 2 02/27/16 0516 Aspartate Amino Transf (AST/SGOT) 24 U/L 02/27/16 0516 Alanine Aminotransferase (ALT/SGPT) 33 U/L 02/27/16 0516 Alkaline Phosphatase 179 U/L H 02/27/16 0516 Total Protein 6.9 G/DL 02/27/16 0516 Albumin 3.2 G/DL L 02/27/16 0516 Globulin 3.7 G/DL H 02/27/16 0516 Albumin/Globulin Ratio 0.9 RATIO L 02/27/16 0516 Plasma Lactate 3.4 MMOL/L H 02/22/16 1443 Plasma Lactate 1.6 MMOL/L 02/22/16 1914 Plasma Lactate 1.5 MMOL/L 02/23/16 0124 Item Value Date Time White Blood Count 9.9 T/MM3 03/01/16 0450 Red Blood Count 4.14 M/MM3 L 03/01/16 0450 Hemoglobin 11.1 GM/DL L 03/01/16 0450 Hematocrit 36.7 % L 03/01/16 0450 Mean Corpuscular Volume 88.6 UM3 03/01/16 0450 Mean Corpuscular Hemoglobin 26.8 UUG 03/01/16 0450 Mean Corpuscular Hemoglobin Concent 30.2 GM/DL L 03/01/16 0450 RDW Standard Deviation 48.9 FL 03/01/16 0450 Platelet Count 215 T/MM3 03/01/16 0450 Mean Platelet Volume 10.3 UM3 03/01/16 0450 Immature Granulocyte % (Auto) 0.3 % 03/01/16 0450 Neutrophils (%) (Auto) 76.9 % H 03/01/16 0450 Lymphocytes (%) (Auto) 11.7 % L 03/01/16 0450 Monocytes (%) (Auto) 8.1 % 03/01/16 0450 Eosinophils (%) (Auto) 2.6 % 03/01/16 0450 Basophils (%) (Auto) 0.4 % 03/01/16 0450 Absolute Immature Granulocyte (auto 0.03 T/MM3 03/01/16 0450 Absolute Neutrophils (auto) 7.6 T/MM3 03/01/16 0450 Absolute Lymphocytes (auto) 1.2 T/MM3 03/01/16 0450 Absolute Monocytes (auto) 0.8 T/MM3 03/01/16 0450 Absolute Eosinophils (auto) 0.3 T/MM3 03/01/16 0450 Absolute Basophils (auto) 0.0 T/MM3 03/01/16 0450 Item Value Date Time Prothromb Time International Ratio 2.49 H 03/03/16 0436 Prothromb Time International Ratio 2.59 H 03/02/16 0515 Prothromb Time International Ratio 2.62 H 03/01/16 0450 Prothromb Time International Ratio 1.80 H 02/29/16 0428 Prothromb Time International Ratio 1.38 H 02/28/16 0434 Prothromb Time International Ratio 1.39 H 02/27/16 0516 Prothromb Time International Ratio 2.03 H 02/26/16 0458 Prothromb Time International Ratio 3.57 H 02/25/16 0605 Prothromb Time International Ratio 2.98 H 02/24/16 0437 Prothromb Time International Ratio 3.46 H 02/23/16 0731 Prothromb Time International Ratio 3.30 H 02/22/16 1443 Laboratory Tests Test 03/02/16 05:15 03/03/16 04:36 Prothromb Time International Ratio 2.59 (0.76-1.04) 2.49 (0.76-1.04) Microbiology Cultures Blood cultures 02/21 04/22 with MSSA and GBS, Right foot wound 02/22 GBS and MRSA, Right foot wound (surgical culture) 02/25: MSSA. Blood cultures 02/23 Negative Urine culture 02/21 E. coli, resistant only to quinolones Radiology Chest x-ray 02/22/2016 shows right basilar pneumonia or aspiration. Mild vascular congestion or edema Chest x-ray 02/29/2016 shows left PICC line tip projects over the right atrium. This had already been retracted by the time of this exam. Pulmonary edema is seen with small bilateral pleural effusions and hazy airspace disease in the right mid to lower lung field. No pneumothorax. CT head 02/29/2016 shows no acute intracranial abnormality or hemorrhage. This was done due to severe headache. Bilateral venous Dopplers of the legs were negative for DVT on 02/22/2016 History of Present Illness "Darrell" is a 85 yo WM who presented via EMS to the ED today due to increasing weakness, difficulty in standing, and fever with rigors. He lives at home with his . Had previously been in a SNU in the past- made it clear that he will not ever return to a NF in the future. He is a very difficult historian, does not like to answer questions. He is notably SOA- cannot tell me when it started. Reports that he is not aware that he is SOA. His friend reports that he has not seen him breath like this in the past. Denies any chest pain. Denies abdominal pain. Cannot report if he has any urinary retention. Upon my palpating his bladder, he asks if "I want him to pee in my hand". He has chronic foot wound for some time- reports following with Dr. Ricci for wound care. Does admit to a nonproductive cough, but will not quantify it for me. Denies any acute c/o pain. He is on warfarin- does not know why he is on it per his report. Hospital Course 04/25/15- 85 yo with severe sepsis *Likely multifocal source of sepsis. Severe UTI, Severe right foot wound with very fetid odor- suspect necrosis. Will start Zosyn and Vanco to cover both. Consult Dr. Ricci- Dr. Martinez to notify. May need further imaging of foot- high risk for osteo. Obtain wound cultures, consult wound clinic. Provide IVF at a moderate rate to avoid fluid overload. *Significant valvular heart disease Repeat echo. Telemetry. Assess venous doppler given severity of his peripheral edema. INR is hypertherapeutic- hold warfarin. *HTN- Resume metoprolol due to tachycardia. Hold Norvasc due to risk of septic shock. Telemetry. *Concern for urinary retention- bladder scan, place [place] PRN. *Dyspnea- O2/Antibiotics. Appears ill. Difficult historian- very irritable. Vitals appear stable at this point, feel comfortable placing to floor. Inpatient admission. When he is more stable, will need PT for strengthening. 02/23/16 Urine culture is positive for E-coli. Blood cultures are positive for Staph aureus and group step B. Continue Zosyn and Vanco IV for anti-microbial coverage. Will call Dr Schultz this afternoon now that blood cultures are positive. Appreciate consultation by Dr Schultz and Dr Ricci for wound management. Continue with Burnet as needed for pain control. May also use Morphine as needed for breakthrough pain. INR 3.46 today. Coumadin dosing as per pharmacy Once patient is more medically stable would benefit from PT/OT as he has had a recent decline at home due to weakness and pain in lower ext. WBC count increased to 18.7 today. Venous lactate 1.6. 02/24/16 Severe sepsis: Blood cultures are showing group B strep and staph aureus. Sensitivities are pending. Urine culture with Escherichia coli now has sensitivities- Zosyn is acceptable. Continue on va ncomycin as well for complicated foot wounds, these cultures are also pending. WBC decreased to normal range, and he's been afebrile for more than 36 hrs. However, his pro- calcitonin increased to 21. The family reports that Dr. Ricci may want to take him to the OR for debridement (yesterday during bedside debridement it appeared that he had osteo of his right foot), but Dr. Ricci will not be able to do that today. Initially I had ordered metronidazole given increase in procalcitonin, but after discussion with Dr. Schultz, she did not think that was necessary with the current culture results. She also didn't feel that an MRI would add much benefit if Dr. Ricci was able to visualize infected bone. She recommends repeating BC now. She will reassess in am. A-fib: Continue Coumadin per pharmacy protocol. Will close monitoring of INR while he is on metronidazole. Echo shows: 1. Left atrial enlargement. 2. Preserved LV systolic function. Ejection fraction is estimated at 55% with subtle septal hypokinesis. 3. Sclerotic and calcified changes involving the mitral valve, subvalvular apparatus, and aortic valve leaflets, not unusual for patient's age. 4. Moderate tricuspid regurgitation. 5. Mild regurgitation involving all other three valves. 6. Normal systolic PA pressure and estimated normal central venous pressure. Fluid overload - Stop IVF. Weight has increased and now he has rales on pulmonary exam. Will give Lasix 20 mg x1 & give KDur 20 mEq since K is 3.7. High risk medications in use - IV narcotics, anticoagulants. 02/25/16 Dr. Ricci is planning on debridement of foot ulcerations in the OR on February 25. His Coumadin has been placed on hold. Dr. Schultz evaluated Bill this morning. She recommends to continue Unasyn and vancomycin. If it is not MRSA, we can discontinue vancomycin. Suspect osteomyelitis to the right foot. PICC line was rec ommended, but the patient would like to speak with Dr. Ricci first. His pro calcitonin decreased today to 8.8; WBC 8.8. Darrell was wheezing this morning. His last chest x-ray was on 02/22/16 showing right basilar pneumonia or aspiration and mild vascular congestion. He did receive a dose of Lasix yesterday. Repeat chest x-ray today 02/25 Doing well this evening. Tolerated Sx. Notes some discomfort to feet. Breathing well. No chest pain. No ab pain or nausea. Stools moving. Sx debridement done today. Continue Unasyn and Vanco. PT/OT consult to help increase functional abilities. Monitor lab. 02/26 Doing okay today. No f/c. Breathing well. Urinating well. No ab pain or nausea. Did sit up in bed with therapy - not wanting to bear any weight on feet due to discomfort. PICC line placed. ID recommend continuing current antibiotics - Unasyn and Vanco. Will restart Coumadin. 02/28/16- "Darrell" is improving significantly. Mentation is much more clear at this point. Continue Unasyn & Vanco per ID. (Bacteremia/Complicated foot wound/UTI). He continues to require significant care- SW exploring Swing bed options. He did require operative debridement of necrotic bone and tissues. Will need IV abx x 4-[address] Ricci managing wounds. AFib is stable, rate controlled. Warfarin per pharmacy. His BP remains fairly high. HR is stable 60-70's. Continue current metoprolol and Norvasc. Will add Lisinopril 10mg and monitor status. 02/29/16 Severe headache and neck pain - Apply heating pad and add Flexeril [address] head ordered. Septicemia with S. aureus (MSSA) and GBS - second set of BC neg. to date. Continue Unasyn. Osteomyelitis R foot, wound culture with MRSA and GBS, s/p I&D with excision of R MT head on 02/26/16. continue Vancomycin & care per Dr. Ricci HTN - Lisinopril restarted; monitor response Situational depression - discussed with Efraín, patient's son. Would not believe pt would appreciate psychiatric consultation. Efraín offered his phone number to call anytime ( sometimes he worries that his mother may not understand all of the medical explanations) - E. coli UTI - pansensitive 03/01/16 Severe headache and neck pain - Improved. CT head showed possible old stroke but no acute findings. Septicemia with S. aureus (MSSA) and GBS - second set of BC neg. to date. Continue Unasyn. Osteomyelitis R foot, wound culture with MRSA and GBS, s/p I&D with excision of R MT head on 02/26/16. Wound care per Dr. Ricci. Dr. Schultz narrowed abx to Ancef (does not belief that MRSA from superficial wound culture is clinically significant). She recommends SNU/ rehab/LTACH for 6 weeks of abx. HTN - Lisinopril restarted; still with elevated BP. He's on Toprol XL 50 mg daily, and is having mild bradycardia. Will discuss further treatment with attending. E. coli UTI - pansensitive Anticoagulation - INR therapeutic today at 2.62 03/03/2016-Dr. Martinez The patient is doing well today. He has some mild neck discomfort, possibly from turning his head to an unusual angle to look at the TV. He has some mild chronic foot pain. He denies any other pain. He is eating and drinking okay. He denies any shortness of breath. Vitals at been stable. Chest is clear to auscultation. Cardiovascular reveals an irregularly irregular rhythm. He has mild JVD. He has chronic A. fib and is on Coumadin. Chest is clear to auscultation. Abdomen is soft and nontender with positive bowel sounds. Feet are wrapped and propped up in Heal protectors. He appears stable for transfer to swing bed. I did talk with Dr. Reed at [facility] and he has accepted the patient in transfer. The patient will need IV Ancef 2 g every 8 hours for 6 total weeks after surgery. This will run through 04/07/2016. The patient will keep his PICC line in the left upper arm. He will need a CBC with differential, CMP, C-reactive protein, and sedimentation rate once weekly while on IV antibiotics and these will need to be faxed to Dr. Schultz Regarding hypertension, his home dose of Norvasc and metoprolol were continued. Lisinopril was started at 10 mg once daily and increase to 20 mg once daily a few days ago. Systolic blood pressure is still in the 140s to 160s. He may benefit from diuresis versus further adjustment in lisinopril. Would recommend a basic metabolic profile tomorrow. The patient is on warfarin for atrial fibrillation. Coumadin dosage has been adjusted by pharmacy here in the hospital. On 02/28/2016 he received 7.5 mg, on 02/29/2016 he received 5 mg, on 03/01/2016 and 03/02/2016 he received 2 mg, and today he received 2.5 mg. Please see recent INRs under laboratory above. Urinary tract infection has resolved. The patient will need wound care and wound care orders have been written. The patient may be weightbearing for transfers only that should not attempt to walk with his current wounds. The patient would likely benefit from PT and OT for strengthening. We'll discharge to swing bed today by nonemergent transfer. Greater than 30 minutes of time was spent on dismissal day. Problems: (1) Complicated wound infection Status: Acute (2) Bacteremia due to Gram-positive bacteria Status: Acute Assessment & Plan: MICROBIOLOGY GRAM STAIN W Final 02/23/166 RESULT GRAM POSITIVE COCCI IN CHAINS MANY BLOOD CULTURE. Preliminary 02/23/16 Organism 1 STAPHYLOCOCCUS AUREUS CULTURE COMMENT: GROWTH IN THE AEROBIC BOTTLE CULTURE COMMENT: GROWTH IN THE ANAEROBIC BOTTLE Organism 2 STREP AGALACTIAE - (GROUP B) CULTURE COMMENT: GROWTH IN THE AEROBIC BOTTLE CULTURE COMMENT: GROWTH IN THE ANAEROBIC BOTTLE MICROBIOLOGY GRAM STAIN [facility] Final 02/23/161129 RESULT GRAM POSITIVE COCCI BLOOD CULTURE. Preliminary 02/24/161230 Organism 1 STREP AGALACTIAE - (GROUP B) CULTURE COMMENT: GROWTH IN THE AEROBIC BOTTLE CULTURE COMMENT: GROWTH IN THE ANAEROBIC BOTTLE Organism 2 STAPHYLOCOCCUS AUREUS (3) Complicated UTI (urinary tract infection) Status: Acute Assessment & Plan: MICROBIOLOGY URINE CULTURE. Final 02/24/1659 Organism 1 ESCHERICHIA COLI COLONY COUNT >100,000 CFU/ml E COLI INTERP ODESSA ------ --------- AMOX/CLAV ACID S 4 AMPICILLIN S 8 CEFAZOLIN S <=4 CEFEPIME S <=1 CEFTAZIDIME S <=1 CEFTRIAXONE S <=1 CIPROFLOXACIN R >=4 ERTAPENEM S <=0.5 GENTAMICIN S <=1 LEVOFLOXACIN R >=8 NITROFURANTOIN S <=16 TOBRAMYCIN S <=1 TRIMETH/SULFA S <=20 PIPERACILL/TAZO S <=4 (4) Severe sepsis with acute organ dysfunction Status: Resolved (5) Acute respiratory insufficiency Status: Resolved (6) Hypertension Status: Chronic (7) Mitral valve prolapse Status: Chronic (8) Chronic atrial fibrillation Status: Chronic (9) Chronic foot ulcer Status: Chronic (10) Chronic anticoagulation Status: Chronic Assessment & Plan: Hx of A-fib (11) Peripheral edema Status: Chronic DVT Prophylaxis: Coumadin Code Status Do Not Resuscitate Home Meds Active Scripts Warfarin Sodium (Warfarin Sodium) 2.5 Mg Tablet, 2.5 MG PO 1700, #30 TAB Take 1 tablet, by mouth, 1 time a day (at 5 pm). This will likely need to be adjusted based on INR Prov:ELVIA MARTINEZ MD 03/03/16 Cefazolin Sodium in 0.9 % NaCl (Cefazolin 2 G/100 ml-0.9% NaCl) 2 Gm/100 Ml Plast..bag, 2 G IV Q8H for 36 Days, BAG 10 g IV every 8 hours through 04/07/2016 Prov:ELVIA MARTINEZ MD 03/03/16 Bisacodyl (Bisacodyl) 10 Mg Supp.rect, 10 MG RECTALLY DAILY Y for CONSTIPATION, #7 Prov:ELVIA MARTINEZ MD 03/03/16 Hydrocodone/Acetaminophen (Burnet 5-325 Tablet) 5-325 Tablet, 1-2 TAB PO Q4H Y for PAIN, #30 TAB Prov:ELVIA MARTINEZ MD 03/03/16 Acetaminophen (Tylenol) 325 Mg Tablet, 325-650 MG PO Q5H Y for DISCOMFORT, #30 TAB Prov:ELVIA MARTINEZ MD 03/03/16 Nitroglycerin (Nitrostat) 0.4 Mg Tablet, 0.4 MG SL Q5M Y for CHEST PAIN, #10 TAB Prov:ELVIA MARTINEZ MD 03/03/16 Lisinopril (Lisinopril) 20 Mg Tablet, 20 MG PO HS, #30 TAB Prov:ELVIA MARTINEZ MD 03/03/16 Nystatin (Nystatin) 50,000,000 Unit Powder.ea., 1 APPLIC TOP TID, #1 BOTTLE Prov:ELVIA MARTINEZ MD 03/03/16 Reported Medications Cholecalciferol (Vitamin D3) (Vitamin D) 2,000 Unit Capsule, 1 CAP PO DAILY 02/22/16 Amlodipine Besylate (Amlodipine Besylate) 5 Mg Tablet, 5 MG PO DAILY 02/22/16 Vit A/Vit C/Vit E/Zinc/Copper (Preservision Areds Softgel) 1 Each Capsule, 1 TAB PO BID 08/13/14 Metoprolol Succinate (Metoprolol Succinate) 50 Mg Tab.er.24h, 50 MG PO DAILY 08/13/14 Discontinued Reported Medications Warfarin Sodium (Warfarin Sodium) 1 Mg Tablet, 4 MG PO 3XW MON,WED,FRI 02/22/16 Warfarin Sodium (Warfarin Sodium) 1 Mg Tablet, 3 MG PO 4XW SUN,TUE,ERIC,SAT 02/22/16 Hydrocodone/Acetaminophen (Hydrocodon-Acetaminoph 7.5-325) 1 Each Tablet, 1 TAB PO TID Y for PAIN 08/13/14 Face to Face Encounter I met with patient on the day of dismissal and discussed follow up appointments , medications, and safety plan. Discharge Disposition Dismiss to swing bed status in stable condition Copies To 1: MARIANA CYR MD; KARLA SCHULTZ MD; FERNANDO RICCI MD, FACS, CWS ELVIA MARTINEZ MD Mar 03, 2016 14:10 Procedures Procedure Status Date Provider(s) [id number]"BORDER, EACH DRESSING" Completed 12/23/15 E&M LEVEL - FACILITY Completed 12/23/15 [id number]"BORDER, EACH DRESSING" Completed 02/03/16 [id number] ITEM OR SERVICE Completed 02/03/16 E&M LEVEL - FACILITY Completed 02/03/16 [id number]"BORDER, EACH DRESSING" Completed 01/20/16 Wound debridement Completed 02/26/16 FERNANDO RICCI MD, FACS, CWS Encounters Encounter Location Arrival/Admit Date Discharge/Depart Date Attending Provider Discharged Inpatient [facility] 02/22/16 4:18pm 03/03/16 5:19pm ELVIA MARTINEZ MD Registered Clinic [facility] 02/03/16 8:14am FERNANDO RICCI FACS, MD Registered [facility] 01/20/16 8:47am FERNANDO RICCI FACS, MD Registered [facility] 12/23/15 8:05am FERNANDO RICCI FACS, MD
--- NOTE | 2016-08-12 17:06 | NUR ---
IMAGING PT TO IMAGING AT THIS TIME.
--- NOTE | 2016-08-12 17:07 | ERPDOC ---
Departure Disposition Decision Date: August 12, 2016 Disposition Decision Time: 19:02 (RAYMONLICHA Mays APRN) Disposition: 01 DISCHARGED HOME, SELF-CARE Impression Impression (SAMAYOLICHA Mays APRN) Impression: Primary Impression: Pain in right knee Chronicity: acute Qualified Codes: M25.561 - Pain in right knee Severity: Moderate (LICHA ENNIS APRN) Condition: Stable Seen By: Mid-level only (LICHA ENNIS APRN) Referrals: MARIANA WILKINS MD (Family) Patient Instructions: Knee Pain (ED) Problems/Meds/Labs Reviewed?: Yes Medications reviewed and manag: Yes (LICHA ENNIS APRN) Additional Instructions: Take the [place]cliff and the Baclofen as prescribed. I do want you to notify your primary care provider if this is not improving over the next few days. Your US and Xray today were normal. Follow up care ordered?: Yes Mental Status: Alert (LICHA ENNIS APRN) Scripts Hydrocodone/Acetaminophen (Greycliff 5-325 Tablet) 5-325 Tablet 1 TAB PO Q6H Y for PAIN, #12 TAB 0 Refills Prov: RAYMONLICHAHazel Mays APRN 08/12/16 Baclofen (Baclofen) 10 Mg Tablet 1 TAB PO TID, #15 TAB 0 Refills Prov: LICHA ENNIS APRN 08/12/16 HPI - Lower Extremity General Stated Complaint: R KNEE PAIN Time Seen by Provider: 16:38 Source: patient Exam Limitations: no limitations (LICHA ENNIS APRN) Time Seen by Provider: 16:38 (HUSSEIN CARLOS MD) HPI - Lower Extremity Initial Comments He has had some pain behind the right knee since this morning. He does go to wound care for chronic wounds on the feet and did go see them today. He had not been in 2 weeks. They were going to dismiss him from wound care today but did a detailed examination and found a new wound so he will go back next week. He does wear special shoes on his feet and has what looks like bilateral clubbed feet. He is WC bound and we did use a lift to get him onto the cart. Throughout the day the pain has gotten worse and it comes and goes in intensity. He did have an arterial stent placed in the right tibial and artery by Dr Mcknight on Occurred At: home Onset/Timing: Rapid Duration: 4-6 hrs Severity: moderate Pain/Injury Location: right knee Method of Injury: unknown Hx of Similar Symptoms: No Quality: aching (that comes and goes) (NOLD,LICHA N AIR ANALYST) Allergies: Coded Allergies: NKDA (Verified Allergy, Unknown, 08/12/16) Past History Patient Surgical History -Appy -Pat 2014, Gianluca -Shoulder Rt rotator cuff 2006 -Right femur -lillian 2009 Dr. Grant -Cataracts Skin CA (NOLD,LICHA N AIR ANALYST) Past Medical History Metabolic: diabetes ENMT: allergies, cataracts, other Cardiac: A-fib GI: GERD Neurological: headaches Musculoskeletal: other Integumentary: other (NOLD,LICHA N AIR ANALYST) Surgical History General: appendix, other Cardiac: other Joint: shoulder (NOLD,LICHA N AIR ANALYST) Family History Family PMH: FOUND: CAD, [place], diabetes, other (NOLD,LICHA N AIR ANALYST) Vaccines Hx Influenza Vaccination: Yes (dec 2015- PER LAST ADMIT) Hx Pneumococcal Vaccination: Yes (3-4 years ago- PER LAST ADMIT) (NOLD,LICHA N AIR ANALYST) Social History Does patient use chewing tobac: Yes # of Packs/Tins per Day: 1/4 # of Years: 50 Second Hand Exposure: No Substance Use Type: does not use Sexuality: female partner Housing: house Household Members: spouse Current Occupational Status: retired 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 [employer] (NOLD,LICHA N AIR ANALYST) Review of Systems Constitutional Constitutional: DENIES: chills, fatigue, fever, weakness (NOLD,LICHA N AIR ANALYST) Cardiovascular Cardiac: DENIES: chest pain, orthopnea Rhythm/Rate: DENIES: irregular beat, palpitations (NOLD,LICHA N AIR ANALYST) Pulmonary Respiratory: DENIES: cough, dyspnea, sputum (NOLD,LICHA N AIR ANALYST) GI Upper Abdomen: DENIES: nausea, pain, vomiting Lower Abdomen: DENIES: constipation, diarrhea, pain (NOLD,LICHA N AIR ANALYST) Integumentary Skin: DENIES: rash (NOLD,LICHA N AIR ANALYST) Neurological General: DENIES: headache, numbness, tingling, weakness (LICHA ENNIS APRN) Physical Exam General General Nourishment: well nourished, well developed, appears stated age, no acute distress, adult General Body Habitus: well groomed (LICHA ENNIS APRN) Vitals and Pain First Documented Vital Signs Date Time Temp Pulse Resp B/P Pulse Ox O2 Delivery O2 Flow Rate FiO2 08/12/16 16:35 98.0 72 20 159/84 93 Room Air (HUSSEIN CARLOS MD) Vitals and Pain Weight: Kilograms: Height (feet): 6 Height (inches): 2.00 Triage Pain Scale: (LICHA ENNIS APRN) RN VS reviewed by Provider: Yes (LICHA ENNIS APRN) Normal Exams: Chest/Resp: Clear all donald, with good airflow, and symmetry bilaterally CV: Regular rate and rhythm, without murmur or gallop, Pulses 2+ all extremities, capillary refill, <2 seconds all ext., no pedal edema noted Abdomen: Bowel sounds positive, soft, non-tender, non-distended, no hepatosplenomegaly, masses or bruits noted Lymphatic: No lymphadenopathy, or lymphedema noted Neurologic: Patient is alert, and oriented Psychiatric: Patient exhibits, appropriate attention, emotion and affect (LICHA ENNIS APRN) Musculoskeletal (brief) Musculoskeletal Brief: FOUND: tenderness (He does have mild TTP along the right posterior knee. Decreased ROM but this is not new for him. Denies any TTP to the anterior, lateral, or medial aspect of the knee. ), NOT FOUND: deformity (LICHA ENNIS APRN) Integumentary (brief) Integumentary Brief: FOUND: other (Noted increased redness on the right lower extremity. He does have dressings in place from wound care today.) (LICHA ENNIS APRN) Differential Diagnoses Considering: Dislocation, DVT, Fracture, Ligament Tear ACL, Ligament Tear PCL, Sprain, Strain (LICHA ENNIS APRN) Progress Results/Orders Orders Procedure Category Date Status Time Knee Right 3 Views RAD 08/12/16 Resulted Us Venous Duplex, US 08/12/16 Resulted Lower Ext Rt Hydrocodone/Acetaminophen PHA 08/12/16 Complete (Greycliff 5/325) 17:00 Baclofen (Lioresal 10 PHA 08/12/16 Complete mg) 19:15 (HUSSEIN CARLOS MD) Medications Current ED Medications Acetaminophen/ Hydrocodone Bitart (G[place]cliff 5/325) 1 tab O ONCE PO Last administered on 08/12/16 17:23; Start 08/12/16 at 17:00; Stop 08/12/16 at 17:01 ; Status DC Baclofen (LIORESAL 10 mg) 10 mg O ONCE PO Last administered on 08/12/16 19:23 ; Start 08/12/16 at 19:15; Stop 08/12/16 at 19:16; Status DC (HUSSEIN CARLOS MD) Progress Progress US was negative. Xray was negative. I do think that this is likely a muscle spasm from the leg manipulation today at wound care. Will have him try some Baclofen to see if this help with the [place]cliff. Follow up with his PCP if not improving at all. (LICHA ENNIS APRN) Xray Xray : Reason for Exam: right knee pain Xray: Knee R Interpretation: Normal (LICHA ENNIS APRN) Xray : Xray: Knee R Interpretation: Normal, Interpreted by Me (no acute fractures or dislocations noted) (HUSSEIN CARLOS MD) Ultrasound US : Ultrasound: Venous Doppler Interpretation: Normal (LICHA ENNIS APRN) LICHA ENNIS APRN August 12, 2016 17:07 HUSSEIN CARLOS MD August 14, 2016 02:14
--- NOTE | 2016-08-12 17:16 | NUR ---
IMAGING PT RETURN FROM XRAY AT THIS TIME.
[2016-08-12] MEDS: HYDROCODONE/APAP 5 mg/325 mg TABLET PO ONE (17:23)
[2016-08-12] MEDS ORDERED: WARF1TAB6 PO (17:33)
[2016-08-12] MEDS ORDERED: LISI40TA4 PO (17:33)
[2016-08-12] MEDS ORDERED: CLOP75TA33 PO (17:33)
--- NOTE | 2016-08-12 17:40 | NUR ---
SONO AT BEDSIDE
[2016-08-12] MEDS ORDERED: HYDR-4246 PO (19:04)
[2016-08-12] MEDS ORDERED: BACL10TA PO (19:04)
[2016-08-12] MEDS: BACLOFEN 10 MG TABLET PO ONE (19:23)
[2016-08-12 19:55] VITALS: BP 155/79; PULSE 62; RESP 16; O2SAT 98
--- NOTE | 2016-08-12 19:55 | NUR ---
DEPART PT IS DISCHARGED AT THIS TIME, INSTRUCTIONS ARE REVIEWED WITH PT AND HIS AND UNDERSTANDING IS VOICED. PT IS ASSISTED TO TRANSFER TO WHEELCHAIR.
--- NOTE | 2016-08-13 08:10 | DI ---
Indication: ITS.REASON: right knee pain PROCEDURE: KNEE RIGHT 3 VIEWS: Encounter: Initial Comparison: None Findings: There is no acute fracture, dislocation or malalignment identified. Femoral nail with interlocking screws present. Severe lateral compartment degenerative change. Mild bony demineralization. Impression: No acute osseous abnormality. .
--- NOTE | 2016-08-13 08:11 | DI ---
Indication: ITS.REASON: right posterior knee pain PROCEDURE: US VENOUS DUPLEX, LOWER EXT RT: Encounter: Initial Comparison: February 22, 2016 Technique: Color Doppler duplex and grayscale sonographic imaging of the right lower extremity was performed. Findings: Exam was technically difficult due to patient factors and soft tissue edema. There is no evidence for acute deep venous thrombosis in the right thigh. Specifically, serial graded compression was performed from the inguinal ligament to the popliteal bifurcation, on the right thigh, demonstrating appropriate compressibility of the deep venous system. In addition, color and pulsed Doppler demonstrate appropriate spontaneous flow, variation with respiration, and augmentation with calf compression. At the ankle, normal flow is identified in the posterior tibial veins; these vessels are also normal in caliber. Impression: No evidence of acute DVT in the right lower limb. There is a preliminary report by virtual [facility]. .
== END 2016-08-12 19:55 | disposition home or self-care (01) ==
LOC: ED 16:33
DX: M25.561 Pain in right knee (principal)
CPT/HCPCS: 73562; 93971; 99284; A9270

== ENCOUNTER 2016-08-15 18:00 | Emergency (ER) | payer MEDICARE, OTHER ==
[~2016-08-15] VITALS: Ht 188 cm; Wt 87.0 kg
[~2016-08-15 18:00] MED LIST changes: +BACL10TA PO; -CHOL100055 PO; -CLOP75TA PO; +CLOP75TA33 PO; -LISI-621 PO; +LISI40TA4 PO; -NITR0.4T SL; -NYST8800 TOP
--- OUTSIDE RECORDS SUMMARY | 2016-08-15 18:05 | XMS REPORT | Continuity of Care Document ---
Author Author [facility] Organization [facility] Address Unknown Phone Unavailable Support Name Relationship Address Phone MARIANA WILKINS MD Caregiver [address] [place] [address] Unavailable HUSSEIN CARLOS MD Caregiver [address] [place] [address] Unavailable JABIER DEL CASTILLO Next Of Kin [address] [place] [address] Insurance Providers Guarantor Leo Del Castillo Address [address] [place] [address] Email [email or web address] Payer Medicare Policy Number [id number] Subscriber's Name Leo Del Castillo Relationship 18 Self Payer [employer] Policy Number [id number] Subscriber's Name Leo Del Castillo Relationship 18 Self Chief Complaint and Reason for Visit Chief Complaint Lower Extremity Pain Reason for Visit [id number] Problems Active Problems Medical Problem Onset Date [...] Chronic PVD (peripheral vascular disease) Unknown Chronic Pain in right knee Unknown Acute Peripheral edema Unknown Chronic Severe sepsis with acute organ dysfunction Unknown Resolved Valvular heart disease Unknown Chronic Past Problems Medical Problem Onset Date Sepsis Unknown Medications Current Home Medications Medication Dose Units Route Directions Days Qty Instructions Start Date Amlodipine Besylate 5 Mg Tablet 5 Mg Oral Daily 02/22/16 Baclofen 10 Mg Tablet 1 Tab Oral Three Times A Day 15 Tablet Clopidogrel Bisulfate (Clopidogrel) 75 Mg Tablet 75 Mg Oral Daily 08/12/16 Gabapentin 300 Mg Capsule 300 Mg Oral Bedtime 05/14/16 Hydrocodone/Acetaminophen ([place] 5-325 Tablet) 5-325 Tablet 1 Tab Oral Twice A Day 08/02/16 Hydrocodone/Acetaminophen ([place] 5-325 Tablet) 5-325 Tablet 1 Tab Oral Every 6 Hours as needed for Pain 12 Tablet 08/12/16 Lisinopril 40 Mg Tablet 40 Mg Oral Daily 08/12/16 Metoprolol Succinate 50 Mg Tab.er.24h 50 Mg Oral Daily 08/13/14 Vit A/Vit C/Vit E/Zinc/Copper (Preservision Areds Softgel) 1 Each Capsule 1 Tab Oral Twice A Day 08/13/14 Warfarin Sodium 1 Mg Tablet 3 Mg Oral 4 Times A Week 3MG ON SUN, TUES, THURS, SAT 07/20/16 Warfarin Sodium 1 Mg Tablet 4 Mg Oral 3 Times A Week MON, WED & FRI 08/12/16 Past Home Medications Medication Directions Ordered Status [...] Problem Response Recorded Date/Time Onset Date Status Hx Substance Use No 08/12/2016 5:24pm Not Applicable Not Applicable Hx Alcohol Use Y ONCE A WEEK- PER LAST ADMIT 08/12/2016 5:24pm Not Applicable Not Applicable Has the pt used tobacco in the last 12 months Yes 08/02/2016 11:41am Not Applicable Not Applicable Tobacco Usage none 08/21/2014 12:07am Not Applicable Not Applicable Query Response Start Date Stop Date Smoking Status Never smoker Hospital Discharge Instructions No hospital discharge instructions. Plan of Care Discharge Date 08/12/16 7:55pm Disposition 01 DISCHARGED HOME, SELF-CARE Condition at Discharge Stable Instructions/Education Provided Knee Pain (ED) Prescriptions See Medication Section Referrals MARIANA WILKINS MD Address: [address] [place] [address] [phone] Additional Instructions/Education Take the [place] and the Baclofen as prescribed. I do want you to notify your primary care provider if this is not improving over the next few days. Your US and Xray today were normal. Care Plan and Goals Physician Care Plan Problem:Right knee pain Goal: Follow up with primary care provider Instructions: Take medications and follow care plan as discussed/written Functional Status No functional status results. Allergies, Adverse Reactions, Alerts Allergen Type Severity Reaction Status Last Updated NKDA Allergy Unknown Active 08/12/16 Immunizations Query Response on File Recorded Date/Time Hx Influenza Vaccination Y dec 2015- PER LAST ADMIT 08/02/16 11:41am Hx Pneumococcal Vaccination Y 3-4 years ago- PER LAST ADMIT 08/02/16 11:41am Hx Influenza Vaccination Y dec 2015- PER LAST ADMIT 08/02/16 11:41am Influenza Vaccine Hx 2015 08/12/16 5:25pm Vital Signs Acute Vital Signs Vital Response Date/Time Temperature (Fahrenheit) 98.0 deg F (96.8 - 99.1) 08/12/2016 4:35pm Temperature (Calculated Celsius) 36.27579 degrees C (36.0 - 37.3) 08/12/2016 4:35pm Temperature Source Oral 08/02/2016 5:00pm Pulse Rate (adult) 62 bpm (60 - 100) 08/12/2016 7:55pm Respiratory Rate 16 breaths/min (10 - 20) 08/12/2016 7:55pm O2 Sat by Pulse Oximetry 98 % (90 - 100) 08/12/2016 7:55pm Oxygen Delivery Method Room Air 08/02/2016 7:15pm Oxygen Delivery Method Room Air 08/03/2016 8:06am Blood Pressure 155/79 mm Hg 08/12/2016 7:55pm Blood Pressure Source Automatic Cuff 08/03/2016 8:06am Height (Feet) 6 feet 08/12/2016 4:35pm Height (Inches) 2.00 inches 08/12/2016 4:35pm Weight (Kilograms) 92.200 kg 08/12/2016 4:35pm Body Mass Index (BMI) 26.0 08/12/2016 4:35pm Results Laboratory Results Test Name Result Units Flags Reference Collection Date/Time Result Date/ Time Comments White Blood Count 6.5 T/MM3 4.5-11.0 08/03/2016 4:3308/03/2016 5: 04am Red Blood Count 3.81 M/MM3 L 4.50-5.90 08/03/2016 4:08/03/2016 5: 04am Hemoglobin 10.5 GM/DL L 13.5-17.5 08/03/2016 4:08/03/2016 5:04am Hematocrit 34.8 % L 41-53 08/03/2016 4:08/03/2016 5:04am Mean Corpuscular Volume 91.3 UM3 80-100 08/03/2016 4:08/03/2016 5: 04am Mean Corpuscular Hemoglobin 27.6 UUG 26-34 08/03/2016 4:2016 5:04am Mean Corpuscular Hemoglobin Concent 30.2 GM/DL L 31-37 08/03/2016 4:08/03/2016 5:04am RDW Standard Deviation 47.9 FL 36.9-50.2 08/03/2016 4:08/03/2016 5 :04am Platelet Count 190 T/MM3 130-400 08/03/2016 4:08/03/2016 5:04am Mean Platelet Volume 10.4 UM3 9.4-12.4 08/03/2016 4:08/03/2016 5: 04am Neutrophils (%) (Auto) 78.2 % H 33-66 08/03/2016 4:08/03/2016 5: 04am Lymphocytes (%) (Auto) 10.5 % L 23-45 08/03/2016 4:08/03/2016 5: 04am Monocytes (%) (Auto) 8.2 % 0-9.0 08/03/2016 4:08/03/2016 5:04am Eosinophils (%) (Auto) 2.6 % 0-4 08/03/2016 4:08/03/2016 5:04am Basophils (%) (Auto) 0.3 % 0-2 08/03/2016 4:08/03/2016 5:04am Immature Granulocyte % (Auto) 0.2 % 0.0-0.5 08/03/2016 4:332016 5:04am Absolute Neutrophils (auto) 5.1 T/MM3 1.8-7.7 08/03/2016 4:332016 5:04am Absolute Lymphocytes (auto) 0.7 T/MM3 L 1-4.8 08/03/2016 4:332016 5:04am Absolute Monocytes (auto) 0.5 T/MM3 0-0.8 08/03/2016 4:3308/03/2016 5:04am Absolute Eosinophils (auto) 0.2 T/MM3 0-0.5 08/03/2016 4:332016 5:04am Absolute Basophils (auto) 0.0 T/MM3 0-0.2 08/03/2016 4:08/03/2016 5:04am Absolute Immature Granulocyte (auto 0.01 T/MM3 0.00-0.03 08/03/2016 4: 3308/03/2016 5:04am Neutrophils % (Manual) 85.0 % H 33-66 08/02/2016 11:4508/02/2016 12: 10pm Lymphocytes % (Manual) 4.0 % L 23-45 08/02/2016 11:4508/02/2016 12: 10pm Monocytes % (Manual) 3.0 % 0-9.0 08/02/2016 11:4508/02/2016 12:10pm Eosinophils % (Manual) 3.0 % 0-4 08/02/2016 11:4508/02/2016 12:10pm Reactive Lymphocytes % 5.0 % H 0-0 08/02/2016 11:4508/02/2016 12: 10pm Absolute Neutrophils (Manual) 6.2 T/MM3 1.8-7.7 08/02/2016 11:45 12:10pm Lymphocytes # (Manual) 0.3 T/MM3 L 1-4.8 08/02/2016 11:4508/02/2016 12:10pm Monocytes # (Manual) 0.2 T/MM3 0-0.8 08/02/2016 11:4508/02/2016 12: 10pm Eosinophils # (Manual) 0.2 T/MM3 0-0.5 08/02/2016 11:45am 08/02/2016 12 :10pm Reactive Lymphocytes # 0.4 T/MM3 H 0-0 08/02/2016 11:45am 08/02/2016 12: 10pm Red Cell Morphology Comment NORMAL 08/02/2016 11:45am 08/02/2016 12 :10pm Prothromb Time International Ratio 1.39 H 0.76-1.04 08/02/2016 11:45am 08/02/2016 12:25pm THERAPUTIC RANGE=2.00-3.00 FOR ANTI-THROMBOSIS THERAPUTIC RANGE=2.50-3.50 FOR IMPLANTED VALVE Icterus Index < 2 0-7 08/03/2016 4:33am 08/03/2016 5:12am Chemistry Specimen Hemolysis < 15 0-25 08/03/2016 4:33am 08/03/2016 5 :12am 0-25: Specimen Exhibited No Hemolysis. Turbidity < 20 0-20 08/03/2016 4:33am 08/03/2016 5:12am Sodium Level 143 MEQ/L 134-144 08/03/2016 4:33am 08/03/2016 5:12am Potassium Level 4.4 MEQ/L 3.6-5 08/03/2016 4:33am 08/03/2016 5:12am Chloride Level 107 MEQ/L 98-107 08/03/2016 4:33am 08/03/2016 5:12am Carbon Dioxide Level 25 MEQ/L 22-30 08/03/2016 4:33am 08/03/2016 5: 12am Anion Gap 11 MEQ/L 5-08/03/2016 4:33am 08/03/2016 5:12am Blood Urea Nitrogen 18.0 MG/DL 9-08/03/2016 4:33am 08/03/2016 5: 12am Creatinine 0.7 MG/DL L 0.8-1.5 08/03/2016 4:3308/03/2016 5:12am BUN/Creatinine Ratio 26 RATIO 6-08/03/2016 4:33am 08/03/2016 5:12am Glomerular Filtration Rate Calc 107 08/03/2016 4:33am 08/03/2016 5: 12am Glucose Level 89 MG/DL 75-110 08/03/2016 4:33am 08/03/2016 5:12am Calculated Osmolality 276 MOSM/KG 261-280 08/03/2016 4:33am 08/03/2016 5:12am Calcium Level 8.9 MG/DL 8.4-10.2 08/03/2016 4:33am 08/03/2016 5:12am Procedures Procedure Status Date Provider(s) Ins cath [...] time Completed 05/17/16 Electrocardiogram tracing Completed 05/17/16 [id number] ITEM OR SERVICE Completed 05/17/16 624155UKK-SIIJGZH ITEM OR SERVICE Completed 05/17/16 295152PTO-WSIMRFH ITEM OR SERVICE Completed 05/17/16 470515UIZ-NPSJEKX ITEM OR SERVICE Completed 05/17/16 882000KEW-JHATIUS ITEM OR SERVICE Completed 05/17/16 415588LPK-URSVLZT ITEM OR SERVICE Completed 05/17/16 543594YTE-UTMSVJS ITEM OR SERVICE Completed 05/17/16 797768FDC-PDRXLBJ ITEM OR SERVICE Completed 05/17/16 576113ZPG-SMSNLDN ITEM OR SERVICE Completed 05/17/16 097455TNI-QKYAGFB ITEM OR SERVICE Completed 05/17/16 194677GIP-WKEGOLQ ITEM OR SERVICE Completed 05/17/16 270929XAH-MOLEPWN ITEM OR SERVICE Completed 05/17/16 967767RVP-WHTXZKJ ITEM OR SERVICE Completed 05/17/16 766376MMH-YBDKNOG ITEM OR SERVICE Completed 05/17/16 791358"CLOSURE DEVICE, VASCULAR (IMPLANTABLE/INSERTABLE)" Completed 05/17/16 783849XUHYN WIRE Completed 05/17/16 972042OABDN THAN PEEL-AWAY Completed 05/17/16 063196CADQJ THAN PEEL-AWAY Completed 05/17/16 BALLOON ROHITH [id number] Completed 05/17/16 421864"INJECTION, HEPARIN SODIUM, PER 1000 UNITS" Completed 05/17/16 856902"INJECTION, HEPARIN SODIUM, PER 1000 UNITS" Completed 05/17/16 122367"INJECTION, MIDAZOLAM HYDROCHLORIDE, PER 1 MG" Completed 05/17/16 936258"INJECTION, FENTANYL CITRATE, 0.1 MG" Completed 05/17/16 970161"LOW OSMOLAR CONTRAST MATERIAL, 300-399 MG/ML IODINE C Completed 194468"LOW OSMOLAR CONTRAST MATERIAL, 300-399 MG/ML IODINE C Completed Routine venipuncture Completed 07/20/16 Metabolic panel total ca Completed 07/20/16 Complete cbc w/auto diff wbc Completed 07/20/16 Prothrombin time Completed 07/20/16 Electrocardiogram tracing Completed 07/20/16 Routine venipuncture Completed 08/02/16 Tib/per revasc w/tla Completed 08/02/16 MADALYN PENA MD Metabolic panel total ca Completed 08/02/16 Metabolic panel total ca Completed 08/02/16 Bl smear w/diff wbc count Completed 08/02/16 Complete cbc w/auto diff wbc Completed 08/02/16 Complete cbc automated Completed 08/02/16 Prothrombin time Completed 08/02/16 Electrocardiogram tracing Completed 08/02/16 [id number]-IFUKLZQ ITEM OR SERVICE Completed 08/02/16 165946IYP-VENIFMX ITEM OR SERVICE Completed 08/02/16 852868AMP-MTRTYVY ITEM OR SERVICE Completed 08/02/16 240136NSW-SKWXAAN ITEM OR SERVICE Completed 08/02/16 252566FBC-ULUNSAW ITEM OR SERVICE Completed 08/02/16 708380NAW-HVIJSPT ITEM OR SERVICE Completed 08/02/16 728293QHQ-KDKJYPZ ITEM OR SERVICE Completed 08/02/16 442628FRX-MPWXHEE ITEM OR SERVICE Completed 08/02/16 471651FVM-JYLZLNF ITEM OR SERVICE Completed 08/02/16 432833WHZ-UYQXRJN ITEM OR SERVICE Completed 08/02/16 064107GEM-GVQGRVF ITEM OR SERVICE Completed 08/02/16 795718GHS-JNJVBEA ITEM OR SERVICE Completed 08/02/16 535498GPC-IFEXKNT ITEM OR SERVICE Completed 08/02/16 894430YUOAAMYM/PERFUSION CAPABILITY) Completed 08/02/16 993926"CLOSURE DEVICE, VASCULAR (IMPLANTABLE/INSERTABLE)" Completed 08/02/16 631144MEHAY WIRE Completed 08/02/16 020243OPBRZ THAN PEEL-AWAY Completed 08/02/16 465601YXORC THAN PEEL-AWAY Completed 08/02/16"INJECTION, HEPARIN SODIUM, PER 1000 UNITS" Completed 08/02/16"INJECTION, MIDAZOLAM HYDROCHLORIDE, PER 1 MG" Completed 08/02/16"INJECTION, FENTANYL CITRATE, 0.1 MG" Completed 08/02/16"INFUSION, NORMAL SALINE SOLUTION , 1000 CC" Completed 08/02/16"LOW OSMOLAR CONTRAST MATERIAL, 300-399 MG/ML IODINE C Completed Encounters Encounter Location Arrival/Admit Date Discharge/Depart Date Attending Provider Departed Emergency Room [facility] 08/12/16 4:33pm 08/12/16 7: 55pm HUSSEIN CARLOS MD Departed [facility] 08/02/16 11:10am 08/03/16 10:20am MADALYN PENA MD Departed [facility] 07/20/16 10:51am 07/20/16 2:47pm MADALYN PENA MD Departed [facility] 05/17/16 11:06am 05/18/16 11:43am MADALYN PENA MD Recent Diagnosis
--- NOTE | 2016-08-15 18:15 | NUR ---
OUTPUT VOIDED CLEAR KASI URINE-200 CC
[2016-08-15 18:19] VITALS: Ht 188 cm; Wt 87.0 kg
[2016-08-15] MEDS ORDERED: NORMAL SALINE 1,000 ML IV ONE (18:30)
--- NOTE | 2016-08-15 18:30 | ERPDOC ---
Departure Disposition Decision Date: August 15, 2016 Disposition Decision Time: 19:06 Disposition: 01 DISCHARGED HOME, SELF-CARE Impression Impression Impression: Primary Impression: Urinary tract infection Urinary tract infection type: acute cystitis Hematuria presence: without hematuria Qualified Codes: N30.00 - Acute cystitis without hematuria Additional Impression: Dehydration Severity: Moderate Condition: Improved Seen By: Physician only Referrals: MARIANA WILKINS MD (Family) Patient Instructions: Urinary Tract Infection in Men (ED) Problems/Meds/Labs Reviewed?: Yes Medications reviewed and manag: Yes Additional Instructions: Keflex 500 mg, one tablet 3 times daily for 10 days Drink at least 6 glasses of water daily Return to ER immediately for any significant worsening, Otherwise call your doctor's office first thing Tuesday to arrange follow-up appointment for recheck as soon as possible Follow up care ordered?: Yes Mental Status: Alert, Oriented Scripts Cephalexin (Keflex) 500 Mg Capsule 500 MG PO TID, #30 CAP Prov: TALAT ROTH MD 08/15/16 HPI - General Medical General Chief Complaint: General Stated Complaint: SHAKES, ACTING STRANGE Time Seen by Provider: 18:19 Source: patient, family Exam Limitations: clinical condition HPI - General Medical Initial Comments Patient has developed considerable shakiness, feeling of nervousness, and severe and rapid fatigue over the past 24-48 hours. In the past week the patient has had an increase in his lisinopril, and increase in his cholesterol medication, as well as increased hydrocodone dosing for chronic knee pain. 2 days ago the patient was seen in the ER, felt to be having muscle spasms and was started on baclofen 10 mg 3 times daily. Since that time the patient appears to have worsened somewhat, with fatigue, confusion , a feeling of shakiness and tremulousness associated with nervousness, and increasing general confusion. Occurred At: home Onset: Rapid Severity: moderate Associated Symptoms: weakness, DENIES: chest pain, cough, diaphoresis, fever/ chills, headaches, loss of appetite, malaise, nausea/vomiting, rash, seizure, shortness of breath, syncope Hx of Similar Symptoms: Yes Allergies: Coded Allergies: NKDA (Verified Allergy, Unknown, 08/15/16) Past History Patient Medical History Problem List Updates: Severe debilitation Clubfeet Chronic foot wounds Chronic severe lower extremity edema Patient Surgical History -Deseany -Pat 2015, Gianluca -Shoulder Rt rotator cuff 2006 -Right femur -lillian 2009 Dr. Grant -Cataracts Skin CA Past Medical History Metabolic: diabetes, hypercholesterolemia, hypertension ENMT: allergies, cataracts, other Cardiac: A-fib GI: GERD Neurological: headaches Musculoskeletal: other Integumentary: other Surgical History General: appendix, other Cardiac: other Joint: shoulder Family History Family PMH: FOUND: CAD, [place], diabetes, other Vaccines Hx Influenza Vaccination: Yes (dec 2015- PER LAST ADMIT) Hx Pneumococcal Vaccination: Yes (3-4 years ago- PER LAST ADMIT) Social History Does patient use chewing tobac: Yes # of Packs/Tins per Day: 1/ # of Years: 50 Second Hand Exposure: No Substance Use Type: does not use Sexuality: female partner Housing: house Household Members: spouse Current Occupational Status: retired 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 [employer] Review of Systems Constitutional Constitutional: fatigue, weakness, DENIES: appetite decrease, appetite increase , chills, dizziness ENMT Ears: DENIES: pain Hearing: DENIES: hearing loss, tinnitus Balance: DENIES: vertigo Mouth/Throat: DENIES: change in swallowing, change in voice, hoarsness, painful swallowing, sore throat Cardiovascular Cardiac: DENIES: chest pain, dyspnea on exertion Rhythm/Rate: DENIES: irregular beat, palpitations, tachycardia Vascular: DENIES: pedal edema Pulmonary Respiratory: DENIES: cough, dyspnea, pleuritic chest pain GI Upper Abdomen: DENIES: dysphagia, heartburn/indigestion, nausea, pain, vomiting Lower Abdomen: DENIES: blood in stool, constipation, diarrhea, pain General: DENIES: burning, dysuria, frequency, pain, urgency Musculoskeletal General: DENIES: cramps, joint pain, joint swelling, pain, weakness Integumentary Skin: DENIES: rash, sores Neurological General: DENIES: headache, numbness, tingling, vertigo, weakness Psychiatric Psychiatric: DENIES: anxiety, depression, nervousness Physical Exam General General Nourishment: well nourished, well developed, appears stated age General Body Habitus: disheveled Vitals and Pain First Documented Vital Signs Date Time Temp Pulse Resp B/P Pulse Ox O2 Delivery O2 Flow Rate FiO2 08/15/16 18:19 99.1 56 20 135/65 96 Room Air Weight: Kilograms: 87.000 Height (feet): 6 Height (inches): 2.00 Triage Pain Scale: RN VS reviewed by Provider: Yes Comments Patient appears alert, but somewhat confused. Patient is oriented to person place and time, but history and chronology are scattered Normal Exams: Head: Normocephalic w/o trauma Eyes: Pupils are PERRLA w/ EOMI, No scleral icterus, irritation, or foreign bodies noted ENMT: No facial trauma, nasal exudates, pharyngeal erythema, or exudates are noted ENMT (brief) ENMT Brief: FOUND: TM clear, TM good light reflex, ear canals clear, mucosa moist, normal dentition, NOT FOUND: nasal erythema, nasal exudate, nasal swelling, pharnyx erythema, tonsillar deviation Neck (brief) Neck: FOUND: trachea midline, NOT FOUND: JVD, adenopathy, spasm, tenderness, thyromegaly Cardiovascular (brief) Cardiac: FOUND: regular rate, regular rhythm, NOT FOUND: click, gallop, murmur , pedal edema Capillary Refill: <2 sec Pulses: all distal extremities, equal, strong Abdomen (brief) Abdominal Brief: FOUND: bowel normo active x4, soft, NOT FOUND: distended, hepatosplenomegaly, tender Lymphatic (brief) Lymphatic Brief: FOUND: lymphedema (significant 2+ pitting edema in the lower extremities, chronic), NOT FOUND: adenopathy Musculoskeletal (brief) Musculoskeletal Brief: NOT FOUND: spasm Integumentary (brief) Integumentary Brief: FOUND: dry, pink, warm Comments Chronic wounds on the feet, dressed, not examined at this time Neurologic (brief) Neurological Brief: FOUND: CN w/o gross def to obs, motor-no gross deficits, sensory-no gross deficits Psychiatric (brief) Psychiatric Brief: FOUND: alert, attentive, normal affect, NOT FOUND: oriented Progress Results/Orders Orders Procedure Category Date Status Time Iv Lock (Ed Only) EDM 08/15/16 Transmitted 18:26 Cbc W/Auto LAB 08/15/16 Complete Diff-Reflex Manual Cmp - Comprehensive LAB 08/15/16 Complete Metabolic Normal Saline (Normal PHA 08/15/16 Complete Saline Iv) 18:30 UA, LAB 08/15/16 Complete Dip&Micro(Complete) & 18:33 Urine Culture ODESSA 08/15/16 In Process 18:58 Ceftriaxone I.V. (Er PHA 08/15/16 In Process Use Only) (Rocephin 19:15 Lab Results Laboratory Tests Test 08/15/16 18:33 08/15/16 18:39 Urine Collection Type Cleancatch-midstream Urine Color Yellow Urine Turbidity Cloudy Urine pH 5.0 Urine Specific [place] >=1.030 Urine Protein 1+ Urine Glucose (UA) Negative Urine Ketones Negative Urine Blood 3+ Urine Nitrite Negative Urine Bilirubin Negative Urine Urobilinogen 0.2EU/DL Urine Leukocyte Esterase 2+ Urine RBC 1-3/HPF Urine WBC 20-30/HPF Urine WBC Clumps Few Urine Bacteria 4+ Urine Culture Indicated Cult reflexed &setup White Blood Count 8.9T/MM3 Red Blood Count 4.08M/MM3 Hemoglobin 11.4GM/DL Hematocrit 36.6% Mean Corpuscular Volume 89.7UM3 Mean Corpuscular Hemoglobin 27.9UUG Mean Corpuscular Hemoglobin Concent 31.1GM/DL RDW Standard Deviation 49.1FL Platelet Count 184T/MM3 Mean Platelet Volume 10.4UM3 Immature Granulocyte % (Auto) 0.1% Neutrophils (%) (Auto) 78.8% Lymphocytes (%) (Auto) 7.3% Monocytes (%) (Auto) 8.7% Eosinophils (%) (Auto) 4.9% Basophils (%) (Auto) 0.2% Absolute Immature Granulocyte (auto 0.01T/MM3 Absolute Neutrophils (auto) 7.0T/MM3 Absolute Lymphocytes (auto) 0.7T/MM3 Absolute Monocytes (auto) 0.8T/MM3 Absolute Eosinophils (auto) 0.4T/MM3 Absolute Basophils (auto) 0.0T/MM3 Turbidity < 20 Sodium Level 151MEQ/L Potassium Level 4.5MEQ/L Chloride Level 113MEQ/L Carbon Dioxide Level 24MEQ/L Anion Gap 14MEQ/L Blood Urea Nitrogen 21.0MG/DL Creatinine 0.9MG/DL Glomerular Filtration Rate Calc 80 BUN/Creatinine Ratio 23RATIO Glucose Level 99MG/DL Calculated Osmolality 293MOSM/KG Calcium Level 9.3MG/DL Total Bilirubin 0.90MG/DL Icterus Index < 2 Aspartate Amino Transf (AST/SGOT) 19U/L Alanine Aminotransferase (ALT/SGPT) 28U/L Alkaline Phosphatase 167U/L Total Protein 7.2G/DL Albumin 4.0G/DL Globulin 3.2G/DL Albumin/Globulin Ratio 1.3RATIO Chemistry Specimen Hemolysis < 15 Medications Current ED Medications Sodium Chloride 1,000 ml @ 0 mls/hr Q0M ONCE IV Last administered on t 18:42; Start 08/15/16 at 18:30; Stop 08/15/16 at 18:31; Status DC Ceftriaxone Sodium/Sodium Chloride (Rocephin/NS) 100 ml @ 100 mls/hr O ONCE IV ; Start 08/15/16 at 19:15; Stop 08/15/16 at 20:14 Progress Progress Patient given 1 L normal saline IV fluid bolus - to improvement CBC - normal CMP - normal except mildly elevated BUNs in UA - concentrated with positive blood, positive white cells, 4+ bacteria, 2+ leukocyte esterase, consistent with urine tract infection Case and findings are discussed with the patient and his , patient is adamant that he does not want to be in the hospital. Patient is started on Rocephin 1 g IV in the ER, and Keflex 500 mg 3 times daily for 10 days for home treatment. Urine cultures are obtained, and patient will follow-up with his primary provider on Tuesday by phone and arrange follow-up appointment. Patient is given strict instructions to return immediately to ER for any worsening TALAT ROTH MD August 15, 2016 18:30
--- NOTE | 2016-08-15 18:36 | NUR ---
IVL IVL STARTED IN THE RIGHT WRIST WITH #20GA, FIRST ATTEMPT BLOOD OBTAINED FOR LAB PT JACE WELL, BUT C/O TAKING ALL HIS BLOOD AT BEDSIDE
[2016-08-15] MEDS ORDERED: BACL10TA PO (18:40)
--- NOTE | 2016-08-15 18:42 | NUR ---
IV FLUID #1 IV 1000CC NS STARTED AT 999CC/HR IV SITE WITHOUT REDNESS OR SWELLING
[2016-08-15] MEDS ORDERED: VIT1CAPS47 PO (18:44)
[2016-08-15] MEDS ORDERED: CHOL100018 PO (18:44)
[2016-08-15 18:50] LABS: BASOPHILS % (AUTO) 0.2 % (0-2); EOSINOPHILS # (AUTO) 0.4 T/MM3 (0-0.5); EOSINOPHILS % (AUTO) 4.9 % (0-4); HCT - HEMATOCRIT 36.6 % (41-53); HGB - HEMOGLOBIN 11.4 GM/DL (13.5-17.5); IMMATURE GRANULOCYTE # (AUTO) 0.01 T/MM3 (0.00-0.03); IMMATURE GRANULOCYTE % (AUTO) 0.1 % (0.0-0.5); LYMPHOCYTES # (AUTO) 0.7 T/MM3 (1-4.8); LYMPHOCYTES % (AUTO) 7.3 % (23-45); MEAN CORPUSCULAR HGB 27.9 UUG (26-34); MEAN CORPUSCULAR HGB CONC(MCHC 31.1 GM/DL (31-37); MEAN CORPUSCULAR VOLUME 89.7 UM3 (80-100); MEAN PLATELET VOLUME 10.4 UM3 (9.4-12.4); MONOCYTES # (AUTO) 0.8 T/MM3 (0-0.8); MONOCYTES % (AUTO) 8.7 % (0-9.0); NEUTROPHILS % (AUTO) 78.8 % (33-66); RED BLOOD COUNT 4.08 M/MM3 (4.50-5.90); WBC - WHITE BLOOD COUNT 8.9 T/MM3 (4.5-11.0)
[2016-08-15 18:51] LABS: BLOOD, URINE 3+ (NEGATIVE); COLOR,URINE YELLOW (YELLOW); LEUKOCYTE ESTERASE ,URINE 2+ (NEGATIVE); NITRITE,URINE NEGATIVE (NEGATIVE); UROBILINOGEN,URINE 0.2 EU/DL (NORMAL)
[2016-08-15 18:54] LABS: ALBUMIN/GLOBULIN RATIO 1.3 RATIO (1.1-2.2); ALKALINE PHOSPHATASE 167 U/L (38-126); ALT (SGPT) 28 U/L (21-72); ANION GAP 14 MEQ/L (5-15); AST (SGOT) 19 U/L (17-59); BUN/CREATININE RATIO 23 RATIO (6-26); CALCIUM 9.3 MG/DL (8.4-10.2); CHLORIDE 113 MEQ/L (98-107); CO2 - CARBON DIOXIDE 24 MEQ/L (22-30); CREATININE 0.9 MG/DL (0.8-1.5); GLOMERULAR FILTRATION RATE 80; GLUCOSE 99 MG/DL (75-110); POTASSIUM 4.5 MEQ/L (3.6-5); SODIUM 151 MEQ/L (134-144); TOTAL PROTEIN 7.2 G/DL (6.3-8.2)
[2016-08-15 18:57] LABS: BACTERIA,URINE 4+ (NEGATIVE); WBC CLUMPS,URINE FEW; WBC,URINE 20-30 /HPF (0-5)
[2016-08-15] MEDS ORDERED: CEPH-583 PO (19:08)
[2016-08-15] MEDS ORDERED: CEFTRIAXONE I.V. (ER USE ONLY) 1 G in NORMAL SALINE 100 ML IV ONE (19:15)
--- NOTE | 2016-08-15 19:26 | NUR ---
POSITION HOB AND KNEE GATCH ADJUSTED TO TRY AND GET PT MORE COMFORTABLE REMAINS AT BEDSIDE
--- NOTE | 2016-08-15 19:43 | NUR ---
ROCEPHIN IV ROCEPHIN STARTED IV NS WITH 30CC LEFT, WILL USE FLUSH IV SITE WITHOUT REDNESS OR SWELLING
--- NOTE | 2016-08-15 19:45 | NUR ---
POSITION PT POSITION ADJUSTED AND HOB ADJUSTED ANOTHER WARM BLANKET APPLIED
--- NOTE | 2016-08-15 20:10 | NUR ---
STATUS PT IS RESTING QUIETLY WITH EYES CLOSED
--- NOTE | 2016-08-15 20:13 | NUR ---
ROCEPHIN IV ROCEPHIN INFUSED NS RESUMED AT THIS TIME
--- NOTE | 2016-08-15 20:19 | NUR ---
IV FLUID IV NS INFUSED IV SITE WITHOUT REDNESS OR SWELLING
--- NOTE | 2016-08-15 20:48 | NUR ---
INSTRUCTIONS DISMISSAL AND MEDICATION INSTRUCTIONS GIVEN TO PT AND RX GIVEN FOR KEFLEX WITH INSTRUCTIONS BOTH VERBALIZED UNDERSTANDING OF ALL
--- NOTE | 2016-08-15 20:50 | NUR ---
TRANSFER PT TRANSFERED INTO W/C WITH MAX ASSIST OF 2 STAFF
[2016-08-15 20:54] VITALS: BP 145/64; PULSE 60; RESP 20; TEMP 99.1; O2SAT 98
--- NOTE | 2016-08-15 20:54 | NUR ---
DISMISS PT DISMISSED WITH PER W/C
== END 2016-08-15 20:54 | disposition home or self-care (01) ==
LOC: ED 18:00
DX: N30.00 Acute cystitis without hematuria (principal); E86.0 Dehydration
CPT/HCPCS: 80053; 81001; 85025; 87086; 96361; 96365; 99284; J0696; J7030; J7050

== ENCOUNTER → 2016-08-17 | Outpatient (CLI) | payer MEDICARE, OTHER ==
[~2016-08-17] MED LIST changes: +CEPH-583 PO; +CHOL100018 PO; +VIT1CAPS47 PO; -VIT1CAPS5 PO
[2016-08-17 11:57] LABS: ANION GAP 10 MEQ/L (5-15); BUN/CREATININE RATIO 24 RATIO (6-26); CALCIUM 9.3 MG/DL (8.4-10.2); CHLORIDE 109 MEQ/L (98-107); CO2 - CARBON DIOXIDE 26 MEQ/L (22-30); CREATININE 0.8 MG/DL (0.8-1.5); GLOMERULAR FILTRATION RATE 92; GLUCOSE 98 MG/DL (75-110); MAGNESIUM 2.1 MG/DL (1.6-2.3); POTASSIUM 4.5 MEQ/L (3.6-5); SODIUM 145 MEQ/L (134-144)
== END ==
LOC: LAB 11:26
PROVIDERS: ATTEND Internal Medicine Cardiovascular Disease
DX: I10 Essential (primary) hypertension (principal)
CPT/HCPCS: 36415; 80048; 83735

== ENCOUNTER 2017-11-01 06:45 | Inpatient (IN) ==
--- NOTE | 2017-11-01 07:03 | Emergency Department Report ---
General Adult HPI - General Chief complaint: Fall Stated complaint: FALL, INCREASE COUGH Time Seen by Provider: 11/01/17 07:03 Source: patient, EMS Mode of arrival: EMS Limitations: no limitations - History of Present Illness HPI narrative: Patient is an 87-year-old male presents the ER for evaluation of back pain, weakness. Patient lives at home with health with his , has bilateral poor feet, doesn't walk. Patient normally transfers with the help of his wheelchair to commode into an electric scooter. Patient this morning was trying to transfer from wheelchair to commode was unable to help due to weakness, eventually slid down the commode onto the ground. Patient did not hit his head, EMS was called help patient up patient was brought to the ER for evaluation. - Related Data Home Medications Medication Instructions Recorded Confirmed Amlodipine Besylate [Norvasc] 5 mg PO DAILY 11/01/17 11/01/17 Cholecalciferol (Vitamin D3) 1,000 unit PO DAILY 11/01/17 11/01/17 [Vitamin D3] Clopidogrel Bisulfate [Clopidogrel] 75 mg PO DAILY 11/01/17 11/01/17 Furosemide [Lasix 20 mg Tab] 20 mg PO PRN PRN 11/01/17 11/01/17 Gabapentin 300 mg PO DAILY 11/01/17 11/01/17 Lisinopril [Prinivil] 20 mg PO DAILY 11/01/17 11/01/17 Metoprolol Succinate (XL) [Toprol 50 mg PO DAILY 11/01/17 11/01/17 Xl] Previous Rx's Medication Instructions Recorded PEG 3350 17gm PACKET [Miralax] 17 gm PO DAILY #5 packet 07/04/17 Albuterol/Ipratropium [Duoneb] 3 ml AEROSOL RTBID each 11/04/17 Albuterol/Ipratropium [Duoneb] 3 ml AEROSOL RTQID PRN each 11/04/17 Cefpodoxime [Vantin] 100 mg PO BID #12 tab 11/04/17 Cyclobenzaprine [Flexeril] 10 mg PO TID PRN #20 tab 11/04/17 Hydrocodone/APAP 5/325 [Leisenring 1 - 2 tab PO Q6H PRN #20 tab 11/04/17 5/325] Warfarin [Coumadin] 2.5 mg PO NOON tab 11/04/17 Allergies Allergy/AdvReac Type Severity Reaction Status Date / Time No Known Allergies Allergy Verified 11/01/17 16:35 Review of Systems Constitutional: Reports: weakness. Denies: fever, chills Eyes: Denies: eye pain, eye discharge, vision change ENT: Denies: ear pain, throat pain, dental pain Cardiovascular: Denies: chest pain, palpitations, dyspnea on exertion Respiratory: Reports: cough. 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 -ankle 1947. - cholecystectomy. -right rotator cuff shoulder surgery. -femur surgery. - excision squamous cell cancer scalp Family History: Family History (Last Reviewed 07/20/17 @ 11:08 by Xin Crocker [facility]) Father Diabetes - Social History Smoking status: Former smoker second hand exposure: No Substance use type: does not use Alcohol intake: current Alcohol intake frequency: holidays/special occasions only Household members: spouse Current occupational status: retired Does patient use chewing tobacco?: No Physical Exam - Limitations Limitations: no limitations - General General appearance: alert, in no apparent distress - Head Head exam: normocephalic - Eye Eye exam: Present: PERRL, EOMI - ENT ENT exam: Present: normal oropharynx, mucous membranes moist, TM's normal bilaterally - Neck Neck exam: Present: full ROM, trachea midline. Absent: tenderness - Chest Chest inspection: Present: symmetric chest wall rise. Absent: tenderness - Respiratory Respiratory exam: Present: normal lung sounds bilaterally, crackles. Absent: respiratory distress, wheezes, stridor - Cardiovascular Cardiovascular exam: Present: regular rate, normal rhythm, normal heart sounds - Abdominal Exam Abdominal exam: Present: soft, normal bowel sounds. Absent: distention, tenderness - Skin Skin exam: Present: warm, dry, other (patient has rapid wounds on bilateral feet he has asked me not to touch she is being followed by the wound clinic) - Neurological Exam Neurological exam: Present: alert, oriented X3 Course Vital Signs Temperature 98.3 F 11/01/17 06:40 Pulse Rate 70 11/01/17 06:40 Respiratory Rate 20 11/01/17 06:40 Blood Pressure 132/64 11/01/17 06:40 Pulse Oximetry 91 11/01/17 06:40 Temperature 98.0 F 11/04/17 12:00 Pulse Rate 81 11/04/17 12:00 Respiratory Rate 18 11/04/17 12:00 Blood Pressure 142/69 H 11/04/17 12:00 Pulse Oximetry 95 11/04/17 12:00 Medical Decision Making - Lab Data Lab results reviewed: Yes: I reviewed the patient's lab results. Result diagrams: 11/03/17 04:02 11/03/17 04:02 Lab Results 11/01/17 11/01/17 11/01/17 Range/Units 07:21 07:21 07:21 WBC 15.4 H (4.5-11.0) T/MM3 RBC 4.79 (4.50-5.90) M/MM3 Hgb 13.6 (13.5-17.5) GM/DL Hct 43.1 (41-53) % MCV 90.0 (80-100) UM3 MCH 28.4 (26-34) UUG MCHC 31.6 (31-37) GM/DL RDW Std Deviation 48.6 (36.9-50.2) FL Plt Count 183 (130-400) T/MM3 MPV 11.0 (9.4-12.4) UM3 Immature Gran % (Auto) Not performed Neut % (Auto) Not performed Lymph % (Auto) Not performed Broome % (Auto) Not performed Eos % (Auto) Not performed Baso % (Auto) Not performed Neut # (Auto) Not performed Lymph # (Auto) Not performed Broome # (Auto) Not performed Eos # (Auto) Not performed Baso # (Auto) Not performed Abs Immat Gran (auto) Not performed Neutrophils % (Manual) 93.0 H (33-66) % Band Neutrophils % 5.0 (0-6) % Monocytes % (Manual) 2.0 (0-9.0) % Neutrophils # (Manual) 14.3 H (1.8-7.7) T/MM3 Band Neutrophils # 0.8 T/MM3 Monocytes # (Manual) 0.3 (0-0.8) T/MM3 Poikilocytosis 1+ Anisocytosis 1+ Tear Drop Cells 1+ Ovalocytes 1+ RBC Morph Comment Abnormal INR 3.35 H (0.92-1.18) Turbidity < 20 (0-20) Sodium 144 (136-146) MEQ/L Potassium 4.3 (3.6-5) MEQ/L Chloride 105 (98-107) MEQ/L Carbon Dioxide 25 (22-30) MEQ/L Anion Gap 14 (5-15) meq/L BUN 22.0 H (9-20) MG/DL Creatinine 0.8 (0.8-1.5) mg/dL Estimated Creat Clear 61 (>50) mL/min GFR Calculation 91 (>60) mL/min BUN/Creatinine Ratio 28 H (6-26) RATIO Glucose 105 (75-110) MG/DL Calculated Osmolality 280 (261-280) MOSM/KG Calcium 9.1 (8.4-10.2) MG/DL Total Bilirubin 1.90 H (0.20-1.30) MG/DL Icterus Index < 2 (0-7) AST 26 (17-59) U/L ALT 17 (1-50) U/L Alkaline Phosphatase 176 H (38-126) U/L Troponin I < 0.012 (0-0.12) ng/ml Total Protein 7.5 (6.3-8.2) g/dL Albumin 4.0 (3.5-5.0) g/dL Globulin 3.5 (2.4-3.6) G/DL Albumin/Globulin Ratio 1.1 (1.1-2.2) RATIO Plasma Lactate 1.9 (0.6-2.2) MMOL/L Specimen Hemolysis < 15 (0-25) Ur Collection Type Urine Color (YELLOW) Urine Clarity Urine pH (5.0-8.0) Ur Specific Northridge (1.015-1.025) Urine Protein (NEGATIVE) Urine Glucose (UA) (NEGATIVE) Urine Ketones (NEGATIVE) Urine Occult Blood (NEGATIVE) Urine Nitrate (NEGATIVE) Urine Bilirubin (NEGATIVE) Urine Urobilinogen (NORMAL) EU/DL Ur Leukocyte Esterase (NEGATIVE) Urine RBC (0-3) /HPF Urine WBC (0-5) /HPF Urine WBC Clumps Ur Squamous Epith Cells Urine Bacteria (NEGATIVE) Ur Culture Indicated? 11/01/17 Range/Units 07:35 WBC (4.5-11.0) T/MM3 RBC (4.50-5.90) M/MM3 Hgb (13.5-17.5) GM/DL Hct (41-53) % MCV (80-100) UM3 MCH (26-34) UUG MCHC (31-37) GM/DL RDW Std Deviation (36.9-50.2) FL Plt Count (130-400) T/MM3 MPV (9.4-12.4) UM3 Immature Gran % (Auto) Neut % (Auto) Lymph % (Auto) Broome % (Auto) Eos % (Auto) Baso % (Auto) Neut # (Auto) Lymph # (Auto) Broome # (Auto) Eos # (Auto) Baso # (Auto) Abs Immat Gran (auto) Neutrophils % (Manual) (33-66) % Band Neutrophils % (0-6) % Monocytes % (Manual) (0-9.0) % Neutrophils # (Manual) (1.8-7.7) T/MM3 Band Neutrophils # T/MM3 Monocytes # (Manual) (0-0.8) T/MM3 Poikilocytosis Anisocytosis Tear Drop Cells Ovalocytes RBC Morph Comment INR (0.92-1.18) Turbidity (0-20) Sodium (136-146) MEQ/L Potassium (3.6-5) MEQ/L Chloride (98-107) MEQ/L Carbon Dioxide (22-30) MEQ/L Anion Gap (5-15) meq/L BUN (9-20) MG/DL Creatinine (0.8-1.5) mg/dL Estimated Creat Clear (>50) mL/min GFR Calculation (>60) mL/min BUN/Creatinine Ratio (6-26) RATIO Glucose (75-110) MG/DL Calculated Osmolality (261-280) MOSM/KG Calcium (8.4-10.2) MG/DL Total Bilirubin (0.20-1.30) MG/DL Icterus Index (0-7) AST (17-59) U/L ALT (1-50) U/L Alkaline Phosphatase (38-126) U/L Troponin I (0-0.12) ng/ml Total Protein (6.3-8.2) g/dL Albumin (3.5-5.0) g/dL Globulin (2.4-3.6) G/DL Albumin/Globulin Ratio (1.1-2.2) RATIO Plasma Lactate (0.6-2.2) MMOL/L Specimen Hemolysis (0-25) Ur Collection Type Urine, void-cc/notcc Urine Color Yellow (YELLOW) Urine Clarity Sl cloudy Urine pH 6.0 (5.0-8.0) Ur Specific [place] 1.020 (1.015-1.025) Urine Protein Trace A (NEGATIVE) Urine Glucose (UA) Negative (NEGATIVE) Urine Ketones Negative (NEGATIVE) Urine Occult Blood 1+ A (NEGATIVE) Urine Nitrate Negative (NEGATIVE) Urine Bilirubin Negative (NEGATIVE) Urine Urobilinogen 1.0 (NORMAL) EU/DL Ur Leukocyte Esterase 1+ A (NEGATIVE) Urine RBC 5-10 H (0-3) /HPF Urine WBC 50-200 H (0-5) /HPF Urine WBC Clumps Many H Ur Squamous Epith Cells 0-5 Urine Bacteria 2+ H (NEGATIVE) Ur Culture Indicated? Cult reflexed &setup - Radiology Data Radiology results reviewed: Yes: I reviewed the patient's radiology results. Chest x-ray: Right lower lobe pneumonia Disposition Clinical Impression: Right lower lobe pneumonia Disposition: 02 To [facility] Acute Care Condition: Stable Time of Disposition: 23:59 - Seen By: physician
--- OUTSIDE RECORDS SUMMARY | 2017-11-01 07:11 | External Medical Summary | Referral Summary ---
:1930 Author Organization [facility], [facility]iology Address [address] [place] [address] Care Team Providers Name Role Phone Zuhair Cyr V Primary Care Physician Encounter VC Date(s): 08/01/17 - 08/01/17 [facility] [address] [address] [place] [address]- Discharge Disposition: 01-Home or Self Care Attending Physician: Zoey Lazo Admitting Physician: Zoey Lazo Referring Physician: Inocencio Cardozo MD Problem List Condition Effective Dates Status Health Status Informant Allergies(Confirmed) < 02/05/14 Resolved Allergic rhinitis/Hay Active fever(Confirmed) Arthritis(Confirmed) Active Atrial fibrillation Resolved (disorder)(Confirmed) PAT (paroxysmal atrial Active tachycardia)(Confirmed) Tobacco chew use(Confirmed) Active Chronic pain syndrome Active (disorder)(Confirmed)1 Deformity of right foot(Confirmed) Active Macular degeneration(Confirmed)2010 Active Generalized osteoarthritis Active (disorder)(Confirmed) Essential hypertension Active (disorder)(Confirmed) Venous stasis dermatitis(Confirmed) Active Anticoagulant long-term Active use(Confirmed) Back injury(Confirmed) 1950 Active comminuted intertrochanteric lesser Active trochanteric fracture(Confirmed) Osteoarthritis(Confirmed) Active Varicose veins(Confirmed) Active 1Controlled substance agreement Dr. Webb Allergies, Adverse Reactions, Alerts No Known Allergies Medications amLODIPine 5 mg oral tablet 5 mg 1 tabs, Oral, Daily, # 90 tabs, 1 Refill(s), Pharmacy: [facility], 1 tabs Oral Daily Start Date: 10/29/16 Status: OrderedDrisdol 50,000 intl units (1.25 mg) oral capsule 50,000 Intl_Units 1 caps, Oral, qWeek, # 8 caps, 0 Refill(s) Start Date: 10/15/16 Status: Orderedgabapentin 300 mg oral capsule See Instructions, TAKE 1 CAPSULE EVERY DAY, # 90 caps, 1 Refill(s), eRx: [facility], TAKE 1 CAPSULE EVERY DAY Start Date: 12/27/16 Status: Orderedhydrocortisone See Instructions, 2.5 % apply daily, 0 Refill(s) Start Date: 06/18/16 Status: Orderedlisinopril 20 mg oral tablet 20 mg 1 tabs, Oral, Daily, # 90 tabs, 1 Refill(s), Pharmacy: [facility] Start Date: 09/09/16 Status: OrderedMetoprolol Succinate ER 50 mg oral tablet, extended release See Instructions, TAKE 1 TABLET EVERY DAY, # 90 tabs, 1 Refill(s), eRx: [facility], TAKE 1 TABLET EVERY DAY Start Date: 01/03/17 Status: OrderedNorco 5 mg-325 mg oral tablet 1 tabs, Oral, TID, as needed for pain, WRITTEN 01/03/2017, # 60 tabs, 0 Refill(s ) Start Date: 01/03/17 Status: Orderednystatin 100,000 units/g topical powder 1 haydee, Topical, BID, # 15 g, 0 Refill(s) Start Date: 06/18/16 Status: OrderedPlavix 75 mg oral tablet 75 mg 1 tabs, Oral, Daily, # 90 tabs, 1 Refill(s), Pharmacy: [facility], 1 tabs Oral Daily Start Date: 06/18/16 Status: OrderedPreserVision oral tablet 1 tabs, Oral, Daily, # 30 tabs, 0 Refill(s) Start Date: 10/04/13 Status: OrderedVitamin D with Minerals oral tablet 1 tabs, Oral, Daily, # 30 tabs, 0 Refill(s) Start Date: 10/28/14 Status: Orderedwarfarin 1 mg oral tablet See Instructions, pt takes 3mg daily, # 270 Each, 0 Refill(s), Pharmacy: [facility], pt takes 3mg daily Start Date: 12/03/16 Status: Orderedwarfarin 2.5 mg oral tablet See Instructions, per physician instructions, # 30 tabs, 2 Refill(s), Pharmacy: [facility], per physician instructions Start Date: 08/13/16 Status: OrderedWheelchair (DME) DME Item light weight wheelchair for Pt home use due to Dx Subluxation of RT foot with wound S93.37953, See Instructions, # 1 Each, 0 Refill(s), Pharmacy: [facility], light weight wheelchair for Pt home use due to Dx Subluxation of RT foot wi... Start Date: 07/07/15 Status: OrderedWheelchair (DME) DME Item LIGHT WEIGHT WHEELCHAIR FOR PT HOME USE DUE TO DX SUBLUXATION OF RT FOOT& WOUND CARE S93.3315, See Instructions, # 1 Each, 0 Refill(s), Supply Start Date: 07/07/15 Status: Ordered Immunizations Given and Recorded Vaccine Date Status Refusal Reason influenza virus vaccine, inactivated 01/12/16 Given influenza virus vaccine, inactivated 01/01/15 Given influenza virus vaccine, inactivated1 12/28/13 Recorded influenza virus vaccine, live 12/12/12 Given influenza virus vaccine, live 12/16/11 Given 1Location History: See scanned document Procedures Procedure Date Related Diagnosis Body Site Status comminuted intertrochanteric lesser 10/14/08 Completed trochanteric fracture of trochanteric femoral nail, long type S/P rotator cuff repair, right 02/27/07 Completed S/p appendectomy 2003 Completed S/P cataract extraction, bilateral 2003 Completed Social History Social History Type Response Smoking Status Former smoker; Type: Oral1 entered on: 06/18/16 1Pt states he hasnt chewed tobacco since his hospital stay.
--- OUTSIDE RECORDS SUMMARY | 2017-11-01 07:11 | External Medical Summary | Referral Summary ---
:1930 Author Organization [facility] Address [address] [place] [address] Care Team Providers Name Role Phone Zuhair Cyr V Primary Care Physician Encounter VC Date(s): 08/25/17 - 08/25/17 [facility] [address] [address] [place] [address]- Encounter Diagnosis Bilateral sensorineural hearing loss (Discharge Diagnosis) - 08/25/17 Discharge Disposition: 01-Home or Self Care Attending [...] Daily, # 90 tabs, 1 Refill(s), Pharmacy: [facility], 1 tabs Oral Daily Start Date: 10/29/16 Status: OrderedDrisdol 50,000 intl units (1.25 mg) oral capsule 50,000 Intl_Units 1 caps, Oral, qWeek, # 8 caps, 0 Refill(s) Start Date: 10/15/16 Status: Orderedgabapentin 300 mg oral capsule See Instructions, TAKE 1 CAPSULE EVERY DAY, # 90 caps, 1 Refill(s), eRx: [facility], TAKE 1 CAPSULE EVERY DAY Start Date: 12/27/16 Status: Orderedhydrocortisone See Instructions, 2.5 % apply daily, 0 Refill(s) Start Date: 06/18/16 Status: Orderedlisinopril 20 mg oral tablet 20 mg 1 tabs, Oral, Daily, # 90 tabs, 1 Refill(s), Pharmacy: [facility] Start Date: 09/09/16 Status: OrderedMetoprolol Succinate ER 50 mg oral tablet, extended release See Instructions, TAKE 1 TABLET EVERY DAY, # 90 tabs, 1 Refill(s), eRx: [facility], TAKE 1 TABLET EVERY [...] Daily, # 90 tabs, 1 Refill(s), Pharmacy: [facility], 1 tabs Oral [...] daily, # 270 Each, 0 Refill(s), Pharmacy: [facility], pt takes 3mg daily Start Date: 12/03/16 Status: Orderedwarfarin 2.5 mg oral tablet See Instructions, per physician instructions, # 30 tabs, 2 Refill(s), Pharmacy: [facility], per physician instructions Start Date: 08/13/16 Status: OrderedWheelchair (DME) DME Item light weight wheelchair for Pt home use due to Dx Subluxation of RT foot with wound S93.47146, See Instructions, # 1 Each, 0 Refill(s), [...]
[2017-11-01] MEDS: SALINE FLUSH 10ml SYRINGE IVF PRN ×2 (07:22→08:17)
[2017-11-01] MEDS ORDERED: CEFTRIAXONE (ER USE ONLY) 1 GM in NS 100 ML IV ONE (08:05)
--- NOTE | 2017-11-01 08:12 | XRay Report ---
Indication: fall, low back pain PROCEDURE: XR lumbar spine 2-3V: Encounter: Initial Comparison: Acute abdomen series dated August 13, 2014. Findings: Chronic appearing L1-L4 mild compression fractures. There is grade 2 spondylolisthesis of L5 on S1 with bilateral L5 spondylolysis. Mild disk space narrowing at L2-L3. Degenerative facet disease at L3-S1. Arterial vascular calcifications. Bony demineralization. Orthopedic hardware in the right femur. Large amount of stool in the colon with mildly distended gas-filled small bowel loops. Cholecystectomy clips. Impression: Chronic appearing L1-L4 mild compression fractures. .
--- NOTE | 2017-11-01 08:13 | XRay Report ---
INDICATION: cough, aspiration on water today PROCEDURE: CHEST 2-VIEWS UPRIGHT (PA & LAT) Encounter: Initial COMPARISON: February 27, 2016 FINDINGS: Recurrent airspace consolidation in the right lung involving all lobes. Left lung is stable and grossly clear. Small right effusion. No pneumothorax. Cardiac silhouette remains enlarged. Mediastinal contours are stable. Pulmonary vascularity is normal. Impression: Right sided aspiration or pneumonia. .
[2017-11-01] MEDS: NS 1,000 ML IV SCH ×2 (08:17→20:06)
[2017-11-01] MEDS ORDERED: AZITHROMYCIN IV 500 MG in NS 250ml 250 ML IV ONE (08:17)
[2017-11-01 08:54] VITALS: BMI 25.4
[2017-11-01] MEDS ORDERED: SENNA + DOCUSATE TABLET PO PRN (09:36)
[2017-11-01] MEDS ORDERED: ONDANSETRON 4 MG/2 ML INJECTION IVP PRN (09:36)
--- NOTE | 2017-11-01 09:53 | History & Physical Report ---
History of Present Illness Date: 11/01/17 Chief complaint: sepsis, hypoxia, pneumonia, UTI HPI: Leo Del Castillo (Bill) is a very pleasant 87-year-old patient of Dr. Cyr who currently resides in independent living with his in [place], [place]. His is present on exam and reports that over the past few days, she has noticed that he hasn't had as much energy or strength, requiring more assistance with transfers from his wheel chair. She attributed his generalized fatigue and weakness to the fact that they are currently moving. He reports that this morning around 0230 he took a drink of water which he choked on and resulted in a "coughing fit". Around 0530, he finally woke his , Shania, to get assistance to the bathroom. She noted that he was continuing to cough and appeared short of breath. In the bathroom, he was too weak to assist with transfers and ultimately slid to the floor. He denies any injury. No head injury, loss of consciousness, syncope or dizziness. EMS was contacted as he was unable to get up and was transferred to [facility] ED for further evaluation. While in the ED, he was became hypoxic on room air at 87% which improved with 2L NC. Labs revealed leukocytosis (WBC 15.4) with 5% bands. Electrolytes were unremarkable. Lactate was 1.9+ and troponin was <0.012. CXR revealed right lower lobe aspiration and/or pneumonia. UA revealed UTI with 50-200 WBC, WBC clumps and 2+ bacteria. He denies any recent fevers, chills, chest pain, shortness of breath, abdominal pain, nausea, vomiting or dysuria. Due to his sepsis as indicated by his leukocytosis and tachypnea most likely secondary to his UTI and pneumonia, Dr. Vaz was consulted and he was admitted into inpatient status for further evaluation, close respiratory and hemodynamic monitoring, IV antibiotics and respiratory cares. He has a past medical history of a-fib for which he is on chronic anticoagulation with warfarin (INR 3.35 on admission) and hypertension. Review of Systems All systems PM: 10-point ROS was reviewed, no additional remarkable complaints except - Constitutional Constitutional: Present: fatigue, weakness (generalized). Absent: chills, fever (s) - EENMT Eyes: Absent: change in vision Ears: Absent: ear pain Balance: Absent: falling to one side Nose: Absent: nosebleeds, allergies Mouth/Throat: Absent: sore throat, changes in swallowing, change in voice - Cardiovascular Cardiovascular: Present: dyspnea on exertion, edema (chronic). Absent: chest pain, palpitations, syncope, orthopnea Rhythm: Present: regular rhythm Vascular: Present: pedal edema. 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 - Respiratory Respiratory: Present: cough, hemoptysis (x1 this AM), dyspnea on exertion. Absent: wheezing, pain on inspiration, chest congestion - Gastrointestinal Gastrointestinal: Present: constipation. Absent: abdominal pain, melena, nausea , vomiting - Genitourinary Genitourinary: Present: nocturia. Absent: dysuria, flank pain, hematuria - Musculoskeletal Musculoskeletal: Present: muscle weakness. Absent: back pain, deformity - Integumentary/Breasts Integumentary: Absent: rash - Neurological Neurological: Present: weakness (generalized). Absent: confusion, convulsions, dizziness, focal weakness - Psychiatric Psychiatric: Absent: anxiety, behavioral changes - Endocrine Endocrine: Present: cold intolerance (chronic). 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 -ankle 1947. - cholecystectomy. -right rotator cuff shoulder surgery. -femur surgery. - excision squamous cell cancer scalp Family History: Family History Father - age 64 Diabetes DC CAD PUD Mother - age 68 DC CAD Son - alive, age 50 Valvular disease Daughter - alive, estranged, age 61 Asthma Family History: As Above - Social History Smoking status: Former smoker (quit ~1970) Substance use type: does not use Alcohol intake frequency: holidays/special occasions only Housing: apartment Household members: spouse (Shania, 55 years) service: Yes ([employer]) Current occupational status: retired Does patient use chewing tobacco?: No (quit 2016) Current residence: Apartment/Private Home Social history: PCP - Dr. Cyr. Surg/Wound - Dr. Lemus. Medications Home Medications Medication Instructions Recorded Confirmed Type Warfarin Sodium 2 mg PO MoWeFr@0800 #0 08/12/16 11/01/17 History PEG 3350 17gm PACKET [Miralax] 17 gm PO DAILY #5 packet 07/04/17 11/01/17 Rx Amlodipine Besylate [Norvasc] 5 mg PO DAILY 11/01/17 11/01/17 History Cholecalciferol (Vitamin D3) 1,000 unit PO DAILY 11/01/17 11/01/17 History [Vitamin D3] Clopidogrel Bisulfate [Clopidogrel] 75 mg PO DAILY 11/01/17 11/01/17 History Furosemide [Lasix 20 mg Tab] 20 mg PO PRN PRN 11/01/17 11/01/17 History Gabapentin 300 mg PO DAILY 11/01/17 11/01/17 History Hydrocodone/Acetaminophen 1 tab PO Q5H PRN 11/01/17 11/01/17 History [Hydrocodon-Acetaminophen 5-325] Hydrocodone/Acetaminophen 1 tab PO Q6HR PRN 11/01/17 11/01/17 History [Hydrocodon-Acetaminophen 5-325] Lisinopril [Prinivil] 20 mg PO DAILY 11/01/17 11/01/17 History Metoprolol Succinate (XL) [Toprol 50 mg PO DAILY 11/01/17 11/01/17 History Xl] Warfarin [Coumadin] 4 mg PO SUTUTHSA@0800 11/01/17 11/01/17 History Allergies Allergy/AdvReac Type Severity Reaction Status Date / Time No Known Allergies Allergy Verified 11/01/17 16:35 Exam Vital Signs: Temperature 98.5 F 11/01/17 08:53 Pulse Rate 70 11/01/17 08:53 Respiratory Rate 18 11/01/17 08:53 Blood Pressure 113/63 11/01/17 08:53 Pulse Oximetry 95 11/01/17 08:53 Height/Weight/BMI: Height 6 ft Weight 187 lb 2.759 oz Body Mass Index 25.4 Comments: Patient resting in bed with at the bedside. Breathing easily on 2L NC. No cough or respiratory distress. - Constitutional Present: no acute distress, well nourished, well developed, cooperative - Routine HEENT Exam Head: Present: normocephalic, atraumatic Eye: Present: PERRL. Absent: conjunctival icterus ENT: Present: mucous membranes moist, oropharynx clear - Routine Neck Exam Present: supple, full ROM, trachea midline - Routine Chest/Breast/Axilla Exam Chest wall: Absent: pacemaker - Routine Respiratory Exam Present: decreased breath sounds, crackles (right). Absent: respiratory distress Comments: Breathing easily on 2L NC. No cough. - Routine Cardiovascular Exam Present: RRR, S1, S2 - Routine Abdominal Exam Present: soft, normoactive bowel sounds, non distended, non tender - Routine Extremities Exam Present: edema, pulses intact Comments: Patient refused examination of his feet or removal of his socks at this time. Undergoing wound care for chronic wounds to feet. Bilateral feet inverted, chronic. - Routine Back/Spine/Pelvis Exam Back/Spine: Present: kyphosis. Absent: vertebral tenderness Comments: Limited exam due to patient generalized weakness. - Routine Skin Exam Present: dry, warm Comments: Afebrile. - Routine Neurological Exam Present: alert, oriented X3, CN II-XII intact, moving all extremities, hearing grossly intact (hearing aid present), normal speech - Routine Psychiatric Exam Present: normal affect, cooperative Results - Labs CBC & Chem 7: 11/01/17 07:21 11/01/17 07:21 - Impressions Date of Exam: 11/01/17 Type of Exam(s): XR lumbar spine 2-3V Reason for Exam(s): fall, low back pain Indication: fall, low back pain PROCEDURE: XR lumbar spine 2-3V: Encounter: Initial Comparison: Acute abdomen series dated August 13, 2014. Findings: Chronic appearing L1-L4 mild compression fractures. There is grade 2 spondylolisthesis of L5 on S1 with bilateral L5 spondylolysis. Mild disk space narrowing at L2-L3. Degenerative facet disease at L3-S1. Arterial vascular calcifications. Bony demineralization. Orthopedic hardware in the right femur. Large amount of stool in the colon with mildly distended gas-filled small bowel loops. Cholecystectomy clips. Impression: Chronic appearing L1-L4 mild compression fractures. - Imaging and Cardiology Chest x-ray Status: image reviewed by me Additional comments: Date of Exam: 11/01/17 Type of Exam(s): XR chest 2V Reason for Exam(s): cough, aspiration on water today INDICATION: cough, aspiration on water today PROCEDURE: CHEST 2-VIEWS UPRIGHT (PA & LAT) Encounter: Initial COMPARISON: February 27, 2016 FINDINGS: Recurrent airspace consolidation in the right lung involving all lobes. Left lung is stable and grossly clear. Small right effusion. No pneumothorax. Cardiac silhouette remains enlarged. Mediastinal contours are stable. Pulmonary vascularity is normal. Impression: Right sided aspiration or pneumonia. Assessment and Plan (1) Sepsis Current visit: Yes Status: Acute (2) Pneumonia Current visit: Yes Status: Acute (3) UTI (urinary tract infection) Current visit: Yes Status: Acute Assessment and Plan: Assessment: Sepsis indicated by tachypnea and leukocytosis (borderline lactate at 1.9, borderline total bilirubin at 1.90). Right sided pneumonia (POA). Acute respiratory failure with hypoxia (POA). Acute UTI (POA). Chronic a-fib. Chronic anticoagulation with warfarin. Hypertension. Chronic lower extremity wounds - follow with Dr. Lemus and wound care. Chronic L1-L4 compression fractures. Plan - 10/31/17 Admit to inpatient status under the care of Dr. Vaz. 1L NS with Rocephin 1g IV and Azithromycin 500mg IV given in ED. Will continue Rocephin 1g IV with Clindamycin 600mg Q8H for antimicrobial coverage of pulmonary and urinary pathogens. Urinary and blood cultures pending. Will adjust therapy according therapy according to sensitivities. Will try and obtain sputum culture. Respiratory care will telemetry and continuous pulse oximetry. Oxygen as needed to maintain SAO2 >90%, weaning as able. Patient does not use home O2. Mucinex and acapella for mucolytic effect. Given report of choking this morning with water, will have speech evaluation for dysphagia. Given limited mobility with sepsis, will place Shoemaker catheter for close I&O monitoring. Wound care to continue management of chronic wounds. Pharmacy consulted for management of warfarin therapy. INR 3.35 on admission. Recheck labs in AM to monitor blood counts, electrolytes and renal function. Upon discharge, patient's care will return to Dr. Cyr. Patient is a DNR. DVT Prophylaxis: Coumadin Resuscitation Status: Do Not Resuscitate - Time spent with patient Time with patient PN: 70 minutes - Physician Narrative Physician: Giovanna Vaz MD Narrative: Date: 11/01/17 Time: 944 I have independently interviewed and examined patient. Patient chart reviewed. Case discussed with my PA. Care plan developed with my supervision, agree with above. A pleasant 87-year-old male patient noted to have decreased strength, fatigue, weakness associated with coughing bouts which made him present to emergency room. Patient had leukocytosis with WBC count 15,400, left shift. Lactic acid 1.9. Chest x-ray showed evidence of right lung base infiltrate. With these findings, hospitalist service was contacted and patient admitted to medical floor as an inpatient for concern regarding aspiration pneumonia. Patient is a disabled IV Rocephin and azithromycin antibiotic in the emergency room. Patient started on IV Rocephin and clindamycin antibiotic. Blood culture, sputum culture requested. Patient also on oral Coumadin with history of atrial fibrillation, INR 3.35. Coumadin held for now. Pharmacy consulted. PFSH: As above ROS: 10 point review negative except - Physical exam: General: Alert, awake, oriented x3. Not in acute distress. Head: Pupils equal, round, reactive to light and accommodation. Extraocular movements intact. Neck: No elevation in JVP. No pharyngeal erythema noted. Chest: The patient does not use accessory muscles for breathing. Lungs: Decreased breath sounds on auscultation bilateral lung donald. Crackles on auscultation bilateral lung bases. No wheezing, no rhonchi. No pleural rub. CVS: S1, S2 heard on auscultation. Normal rate and rhythm. No murmur, no S3/S4 gallops. Abdomen: Soft, nontender, no distention. Bowel sounds appreciated on auscultation. Skin: No rashes, no induration, no erythema. Capillary refill less than 4 seconds. Extremities: Patient has chronic venous stasis changes bilateral lower extremity, bilateral feet have deformity with inversion, chronic. Assessment: Early sepsis from right lung base pneumonia, acute hypoxemic respiratory failure, acute UTI, hypertension, chronic atrial fibrillation anticoagulated with warfarin, chronic lower extremity deformity, seeing wound care. Chronic L1-L4 compression fractures. Plan: Antibiotic coverage with IV Rocephin, IV clindamycin. Urine culture, blood culture, sputum culture requested. DuoNeb nebulization treatment as needed for wheezing or shortness of breath. Supplemental oxygen by nasal cannula to maintain oxygen saturations greater than 90%. Acapella treatment along with Mucinex. Speech therapy consulted to evaluate dysphagia. Coumadin will be held, INR 3.35. Pharmacy consulted to manage warfarin dose. Sepsis Assessment - Evaluation SIRS Criteria: WBC > 12,000, RR > 20 Hospital Course Summary Disclaimer: The visit summary below is not to be considered part of the above Progress Note. Hospital Course: Plan - 10/31/17 Admit to inpatient status under the care of Dr. Vaz. 1L NS with Rocephin 1g IV and Azithromycin 500mg IV given in ED. Will continue Rocephin 1g IV with Clindamycin 600mg Q8H for antimicrobial coverage of pulmonary and urinary pathogens. Urinary and blood cultures pending. Will adjust therapy according therapy according to sensitivities. Will try and obtain sputum culture. Respiratory care will telemetry and continuous pulse oximetry. Oxygen as needed to maintain SAO2 >90%, weaning as able. Patient does not use home O2. Mucinex and acapella for mucolytic effect. Given report of choking this morning with water, will have speech evaluation for dysphagia. Given limited mobility with sepsis, will place Shoemaker catheter for close I&O monitoring. Wound care to continue management of chronic wounds. Pharmacy consulted for management of warfarin therapy. INR 3.35 on admission. Recheck labs in AM to monitor blood counts, electrolytes and renal function. Upon discharge, patient's care will return to Dr. Cyr. Patient is a DNR.
[2017-11-01] MEDS ORDERED: VANCOMYCIN 1,000 MG INJECTION IV ONE (09:55)
[2017-11-01] MEDS ORDERED: WARFARIN - PHARMACY CONSULT MC ONE (09:56)
[2017-11-01] MEDS ORDERED: ALBUTEROL/IPRATROPIUM 2.5mg-0.5mg/3ml NEB AEROSOL PRN (10:08)
--- NOTE | 2017-11-01 10:24 | Pharmacy Consult ---
Pharmacy Consult-Warfarin - Laboratory Information 11/01/17 11/01/17 11/01/17 07:21 07:21 07:21 Hgb 13.6 Hct 43.1 INR 3.35 H AST 26 ALT 17 Albumin 4.0 - Consult Information Warfarin Consult noted by Danuta CHAKRABORTY for Leo Del Castillo, who is 87 years old and weights 84.9kg. He has chronic afib. Today's INR is above target range. No warfarin will be ordered today. Will continue to monitor. Thank you.
[2017-11-01] MEDS ORDERED: ALBUTEROL/IPRATROPIUM 2.5mg-0.5mg/3ml NEB AEROSOL SCH (11:00)
[2017-11-01] MEDS ORDERED: FALL RISK - PHARMACY CONSULT MC ONE (11:07)
[2017-11-01] MEDS: LACTOBACILLUS (15B cfu) CAPSULE PO SCH ×2 (13:08→16:45)
[2017-11-01] MEDS: CLINDAMYCIN PB 600 MG/50 ML BAG IV SCH ×2 (15:51→23:01)
[2017-11-01] MEDS: HYDROCODONE/APAP 5mg/325mg TABLET PO PRN ×2 (16:45→23:41)
[2017-11-01] MEDS: ALBUTEROL/IPRATROPIUM 2.5mg-0.5mg/3ml NEB AEROSOL SCH (19:35)
[2017-11-01] MEDS: GUAIFENESIN LA 600 MG TABLET PO SCH (20:00)
[2017-11-02] MEDS: ACETAMINOPHEN 325 MG TABLET PO PRN ×2 (03:29→15:05)
[2017-11-02] MEDS: HYDROCODONE/APAP 5mg/325mg TABLET PO PRN ×3 (06:06→21:10)
[2017-11-02] MEDS: CLINDAMYCIN PB 600 MG/50 ML BAG IV SCH ×3 (06:07→23:15)
[2017-11-02] MEDS: ALBUTEROL/IPRATROPIUM 2.5mg-0.5mg/3ml NEB AEROSOL SCH ×2 (07:16→20:01)
--- NOTE | 2017-11-02 07:27 | Pharmacy Consult ---
Pharmacy Consult-Warfarin - Laboratory Information 11/01/17 11/01/17 11/01/17 07:21 07:21 07:21 Hgb 13.6 Hct 43.1 INR 3.35 H AST 26 ALT 17 Albumin 4.0 11/02/17 11/02/17 04:53 04:53 Hgb 11.5 L D Hct 37.4 L D INR 3.83 AST ALT Albumin - Consult Information COUMADIN CONSULT: Day 2 OD is a 87-year-old patient of Dr. Cyr. His has noticed that he hasn' t had as much energy or strength, requiring more assistance with transfers from his wheel chair. CXR revealed right lower lobe aspiration and/or pneumonia. Due to his sepsis as indicated by his leukocytosis and tachypnea most likely secondary to his UTI and pneumonia, Dr. Vaz was consulted and he was admitted into inpatient status for further evaluation. He has a past medical history of a-fib for which he is on chronic anticoagulation with warfarin (INR 3.35 on admission) and hypertension. Date INR Dose 11/01 3.35 Held 11/02 3.83 Hold today Will give NO warfarin today due to elevated INR. The pharmacy will continue to monitor the INR's and adjust the warfarin as needed. Thanks for the Warfarin Protocol, Nabil Aragon, Pharmcist.
[2017-11-02] MEDS ORDERED: WARFARIN 1 MG TABLET PO SCH (08:00)
[2017-11-02] MEDS: NS 1,000 ML IV SCH ×2 (08:48→20:18)
[2017-11-02] MEDS: CEFTRIAXONE 1 G in NS 100 ML IV SCH (09:28)
[2017-11-02] MEDS: LISINOPRIL 20 MG TABLET PO SCH (10:00)
[2017-11-02] MEDS: CLOPIDOGREL 75 MG TABLET PO SCH (10:00)
[2017-11-02] MEDS: GABAPENTIN 300 MG CAPSULE PO SCH (10:00)
[2017-11-02] MEDS: LACTOBACILLUS (15B cfu) CAPSULE PO SCH ×3 (10:00→17:20)
[2017-11-02] MEDS: GUAIFENESIN LA 600 MG TABLET PO SCH ×2 (10:00→21:09)
[2017-11-02] MEDS: AMLODIPINE 5 MG TABLET PO SCH (10:01)
[2017-11-02] MEDS: POLYETHYL GLYCOL 3350 17gm PACKET PO SCH (10:02)
--- NOTE | 2017-11-02 13:07 | Wound Care Progress Note ---
Wound Center Progress Note: Pt seen for wound consultation r/t continuing care for foot wounds. Pt lying in bed, reports his back hurts, at bedside. Pt reports he had been seen in the past at the [facility] for wounds to bilateral feet. Wounds have subsequently healed. Pt has discoloration on the R lateral foot. The reports she did not notice this area when she was putting on his socks earlier. During the night the pt went to the bathroom, but became weak and could not right himself on the toilet and fell. states he fell between the toilet and the wall. She believes the discoloration may have been a result of him "sliding" down between the wall and toilet. R lateral foot: Area of discoloration measures 0.3 (L) x 2 (W), non blanchable, skin intact. Periwound: WDNL. Pt's bilateral feet invert, his feet have been this way for the past 5 years. L buttock: areas of denudation, no drainage. Periwound: blanchable erythema. Wound tx plan: To R lateral foot: Continue to monitor, apply Mepilex for extra cushioning, change PRN, float bilateral heels. L buttock: apply Mepilex, change q 3 days.
--- NOTE | 2017-11-02 15:13 | Progress Note ---
- Date 11/02/17 Subjective: Leo is seen today in follow up. He is up in the chair , currently requiring 1.5 liters of oxygen by nasal cannula. He states that he is feeling better overall today. Denies having any pain during examination. Reports his appetite has been good and he ate a good lunch and breakfast today. He does indicate that he did not sleep well last night as his bed was very uncomfortable, caused him to have a backache. He is been afebrile, Vital signs otherwise normal. Objective Vital signs: Temperature 96.4 F L 11/02/17 08:19 Pulse Rate 79 11/02/17 08:19 Respiratory Rate 16 11/02/17 13:28 Blood Pressure 159/69 H 11/02/17 08:19 Pulse Oximetry 95 11/02/17 12:45 Height/Weight/BMI: Height 1.83 m Weight 85.6 kg Body Mass Index 25.4 - Constitutional Present: no acute distress, well nourished, well developed - Routine HEENT Exam Eye: Present: EOMI ENT: Present: mucous membranes moist, dentition normal - Routine Respiratory Exam Present: diminished air movement. Absent: wheezes - Routine Cardiovascular Exam Present: RRR, S1, S2. Absent: murmur - Routine Abdominal Exam Present: soft, normoactive bowel sounds, non distended. Absent: tenderness - Routine Extremities Exam Present: edema (1+ bilateral lower ext) - Routine Back/Spine/Pelvis Exam Back/Spine: Present: full ROM - Routine Skin Exam Present: intact, dry, warm - Routine Neurological Exam Present: alert, oriented X3, CN II-XII intact - Routine Lymphatic Exam Lymphatic: Absent: adenopathy - Routine Psychiatric Exam Present: normal affect, cooperative Results - Labs CBC & Chem 7: 11/02/17 04:53 11/02/17 04:53 Microbiology Results: Microbiology 11/01/17 07:35 Urine, Voided (Cc/notcc) Urine Culture - Preliminary Gram Negative Laureano 11/01/17 09:14 Peripheral/Iv Start Gram Stain - Final Not performed 11/01/17 09:22 Peripheral/Iv Start Gram Stain - Final Not performed Assessment and Plan (1) Sepsis Current visit: Yes Status: Acute (2) Pneumonia Current visit: Yes Status: Acute (3) UTI (urinary tract infection) Current visit: Yes Status: Acute Assessment and Plan: Assessment: Sepsis indicated by tachypnea and leukocytosis (borderline lactate at 1.9, borderline total bilirubin at 1.90). Right sided pneumonia (POA). Acute respiratory failure with hypoxia (POA). Acute UTI (POA). Chronic a-fib. Chronic anticoagulation with warfarin. Hypertension. Chronic lower extremity wounds - follow with Dr. Lemus and wound care. Chronic L1-L4 compression fractures. Plan -11/02/17 Urine culture does reveal M negative luareano growth. Will await culture and sensitivity. Continue on Rocephin and clindamycin for treatment of probable aspiration pneumonia plus urinary tract infection. Continue with scheduled nebulizers. Encourage Acapella. Work on weaning down oxygen. He shouldn't reports feeling general weakness in his lower extremities. Will consult PT and OT Leukocytosis improving- down to 11.0 INR remains supra-therapeutic at 3.83 Foot Wound dressing changes every 3 days as per wound team Recheck CBC and BMP tomorrow to follow blood counts, renal function and electrolytes DVT Prophylaxis: Coumadin Resuscitation Status: Do Not Resuscitate - Physician Narrative Physician: Giovanna Vaz MD Narrative: Date: 11/02/17 Time: 3479 I have independently interviewed and examined patient. Patient chart reviewed. Case discussed with my MESSENGER COPY. Care plan developed with my supervision, agree with above. Patient resting in bedside chair at the time of interview. No reported chest pain, no palpitations. Patient currently on 1.5 L supplemental oxygen via nasal cannula. Reports cough improving and patient has not been able to expectorate sample for sputum culture. Urine culture shows evidence of gram-negative rods, sensitivity results awaited. Physical exam: AAO x 3, NAD PERRLA, EOMI S1 and S2 heard on auscultation, no murmurs Decreased breath sounds on auscultation bilaterally, no wheezing, no crackles Abdomen soft, nontender, positive bowel sounds Patient has chronic venous stasis changes bilateral lower extremity, bilateral feet have deformity with inversion. Assessment: Early sepsis from right lung base pneumonia, acute hypoxemic respiratory failure, acute UTI, hypertension, chronic atrial fibrillation anticoagulated with warfarin, chronic lower extremity deformity, seeing wound care. Chronic L1-L4 compression fractures. Plan: Antibiotic coverage with IV Rocephin, IV clindamycin. Awaiting urine culture sensitivity report. Blood culture 2 so far negative. INR 3.83, will hold Coumadin for now. Pharmacy consulted to manage warfarin dose. PT/OT consulted for recommendations. Acapella treatment along with Mucinex. Hospital Course Summary Disclaimer: The visit summary below is not to be considered part of the above Progress Note. Hospital Course: Plan - 10/31/17 Admit to inpatient status under the care of Dr. Vaz. 1L NS with Rocephin 1g IV and Azithromycin 500mg IV given in ED. Will continue Rocephin 1g IV with Clindamycin 600mg Q8H for antimicrobial coverage of pulmonary and urinary pathogens. Urinary and blood cultures pending. Will adjust therapy according therapy according to sensitivities. Will try and obtain sputum culture. Respiratory care will telemetry and continuous pulse oximetry. Oxygen as needed to maintain SAO2 >90%, weaning as able. Patient does not use home O2. Mucinex and acapella for mucolytic effect. Given report of choking this morning with water, will have speech evaluation for dysphagia. Given limited mobility with sepsis, will place Shoemaker catheter for close I&O monitoring. Wound care to continue management of chronic wounds. Pharmacy consulted for management of warfarin therapy. INR 3.35 on admission. Recheck labs in AM to monitor blood counts, electrolytes and renal function. Upon discharge, patient's care will return to Dr. Cyr. Patient is a DNR. Plan -11/02/17 Urine culture does reveal M negative laureano growth. Will await culture and sensitivity. Continue on Rocephin and clindamycin for treatment of probable aspiration pneumonia plus urinary tract infection. Continue with scheduled nebulizers. Encourage Acapella. Work on weaning down oxygen. He shouldn't reports feeling general weakness in his lower extremities. Will consult PT and OT Leukocytosis improving- down to 11.0 INR remains supra-therapeutic at 3.83 Foot Wound dressing changes every 3 days as per wound team Recheck CBC and BMP tomorrow to follow blood counts, renal function and electrolytes
[2017-11-03] MEDS: HYDROCODONE/APAP 5mg/325mg TABLET PO PRN ×5 (00:47→22:36)
[2017-11-03] MEDS: ACETAMINOPHEN 325 MG TABLET PO PRN ×2 (05:03→12:39)
[2017-11-03] MEDS: CYCLOBENZAPRINE 5 MG TABLET PO PRN ×2 (05:38→11:04)
[2017-11-03] MEDS: NS 1,000 ML IV SCH (05:39)
[2017-11-03] MEDS: CLINDAMYCIN PB 600 MG/50 ML BAG IV SCH ×3 (06:06→23:31)
[2017-11-03] MEDS: CEFTRIAXONE 1 G in NS 100 ML IV SCH (07:40)
[2017-11-03] MEDS ORDERED: WARFARIN 4 MG TABLET PO SCH (08:00)
--- NOTE | 2017-11-03 08:06 | Pharmacy Consult ---
Pharmacy Consult-Warfarin - Laboratory Information 11/01/17 11/01/17 11/01/17 07:21 07:21 07:21 Hgb 13.6 Hct 43.1 INR 3.35 H AST 26 ALT 17 Albumin 4.0 11/02/17 11/02/17 11/03/17 04:53 04:53 04:02 Hgb 11.5 L D Hct 37.4 L D INR 3.83 H 2.88 H AST ALT Albumin 11/03/17 04:02 Hgb 12.5 L Hct 40.4 L INR AST ALT Albumin - Consult Information We will give warfarin 2mg (usual home dose) as the INR is within therapeutic range. Thanks
[2017-11-03] MEDS: CLOPIDOGREL 75 MG TABLET PO SCH (08:15)
[2017-11-03] MEDS: AMLODIPINE 5 MG TABLET PO SCH (08:15)
[2017-11-03] MEDS: GUAIFENESIN LA 600 MG TABLET PO SCH ×2 (08:15→21:39)
[2017-11-03] MEDS: LISINOPRIL 20 MG TABLET PO SCH (08:15)
[2017-11-03] MEDS: GABAPENTIN 300 MG CAPSULE PO SCH (08:15)
[2017-11-03] MEDS: LACTOBACILLUS (15B cfu) CAPSULE PO SCH ×3 (08:16→17:12)
[2017-11-03] MEDS: POLYETHYL GLYCOL 3350 17gm PACKET PO SCH ×2 (08:16→08:25)
--- NOTE | 2017-11-03 09:59 | Progress Note ---
- Date 11/03/17 Subjective: Leo initiated the conversation with a rather negative outlook on his recent hospitalizations, his declining health, the one nurse he had who he didn't feel was very good, and his preference favoring the therapists at [facility] rather than here. However, after this he conversed with a more positive spin, and particularly enjoyed talking about his family. He would like to be back home by Tuesday because his newest great-grandson who is 4 weeks old. He has muscle spasms to his back intermittently. He denies SOA or chest pain. He denies nausea. Objective Vital signs: Temperature 95.4 F L 11/03/17 07:49 Pulse Rate 71 11/03/17 07:49 Respiratory Rate 18 11/03/17 08:14 Blood Pressure 163/81 H 11/03/17 07:49 Pulse Oximetry 94 11/03/17 07:49 Height/Weight/BMI: Height 1.83 m Weight 85.6 kg Body Mass Index 25.4 - Constitutional Present: no acute distress, well nourished, well developed - Routine HEENT Exam Head: Present: normocephalic Eye: Present: PERRL. Absent: conjunctival icterus, scleral injection - Routine Respiratory Exam Present: decreased breath sounds - Routine Cardiovascular Exam Present: S1, S2, irregularly irregular - Routine Abdominal Exam Present: soft, normoactive bowel sounds, non distended, non tender - Routine Extremities Exam Present: edema (1+ BLE) - Routine Musculoskeletal Exam Musculoskeletal: Present: other (inversion deformity to both feet) - Routine Skin Exam Present: intact, dry, warm - Routine Neurological Exam Present: alert, oriented X3, normal speech - Routine Psychiatric Exam Present: normal affect, normal thought process, cooperative Results - Labs CBC & Chem 7: 11/03/17 04:02 11/03/17 04:02 Microbiology Results: Microbiology 11/01/17 09:22 Peripheral/Iv Start Blood Culture - Preliminary No Growth After 2 Days 11/01/17 09:14 Peripheral/Iv Start Blood Culture - Preliminary No Growth After 2 Days 11/01/17 07:35 Urine, Voided (Cc/notcc) Urine Culture - Final Enterobacter cloacae Assessment and Plan (1) Sepsis Current visit: Yes Status: Acute (2) Pneumonia Current visit: Yes Status: Acute (3) UTI (urinary tract infection) Current visit: Yes Status: Acute Assessment and Plan: Assessment: Sepsis indicated by tachypnea and leukocytosis (borderline lactate at 1.9, borderline total bilirubin at 1.90). Right sided pneumonia (POA). Acute respiratory failure with hypoxia (POA). Acute UTI (POA) Enterobacter cloacae. Chronic a-fib. Chronic anticoagulation with warfarin. Hypertension. Chronic lower extremity wounds - follow with Dr. Lemus and wound care. Chronic L1-L4 compression fractures. Plan -11/03/17 Urine culture + Enterobacter cloacae, sensitive to Rocephin. WBC 10.4. Continue clindamycin and nebulized treatments for aspiration PNA. On room air this morning. INR therapeutic. Start bladder retraining. Discussed with Dr. Vaz. DVT Prophylaxis: Coumadin Resuscitation Status: Do Not Resuscitate - Physician Narrative Physician: Giovanna Vaz MD Narrative: Date: 11/03/17 Time: 954 I have independently interviewed and examined patient. Patient chart reviewed. Case discussed with my BRICK KILN BURNER. Care plan developed with my supervision, agree with above. Patient resting in bedside chair. Afebrile overnight. Continues to have cough, subjective symptoms of shortness of breath improved. Physical exam: AAO x 3, NAD. Positive scoliosis and kyphosis. PERRLA, EOMI S1 and S2 heard on auscultation, irregularly irregular heart sounds. Lungs clear to auscultation bilaterally, no wheezing, no crackles Abdomen soft, nontender, positive bowel sounds 1+ edema bilateral lower extremities. Assessment: Early sepsis from right lung base pneumonia, resolved. Acute hypoxemic respiratory failure, resolved. Acute UTI, hypertension, chronic atrial fibrillation anticoagulated with warfarin, chronic lower extremity deformity, seeing wound care. Chronic L1-L4 compression fractures. Plan: Continue IV Rocephin and clindamycin antibiotics. Bladder retraining initiated. INR 2.88, will be monitored. With further improvement, tentative plan for discharge home in the next 12 days. Hospital Course Summary Disclaimer: The visit summary below is not to be considered part of the above Progress Note. Hospital Course: Plan - 10/31/17 Admit to inpatient status under the care of Dr. Vaz. 1L NS with Rocephin 1g IV and Azithromycin 500mg IV given in ED. Will continue Rocephin 1g IV with Clindamycin 600mg Q8H for antimicrobial coverage of pulmonary and urinary pathogens. Urinary and blood cultures pending. Will try and obtain sputum culture. Respiratory care will telemetry and continuous pulse oximetry. Oxygen as needed to maintain SAO2 >90%, weaning as able. Patient does not use home O2. Given report of choking this morning with water, will have speech evaluation for dysphagia. Given limited mobility with sepsis, will place Shoemaker catheter for close I&O monitoring. Wound care to continue management of chronic wounds. Pharmacy consulted for management of warfarin therapy. INR 3.35 on admission. Upon discharge, patient's care will return to Dr. Cyr. Patient is a DNR. Plan -11/02/17 Urine culture does reveal M negative lillian growth. Will await culture and sensitivity. Continue on Rocephin and clindamycin for treatment of probable aspiration pneumonia plus urinary tract infection. Continue with scheduled nebulizers. Encourage Acapella. Work on weaning down oxygen. He shouldn't reports feeling general weakness in his lower extremities. Will consult PT and OT Leukocytosis improving- down to 11.0 INR remains supra-therapeutic at 3.83 Foot Wound dressing changes every 3 days as per wound team Recheck CBC and BMP tomorrow to follow blood counts, renal function and electrolytes 11/03/17 Urine culture + Enterobacter cloacae, sensitive to Rocephin. WBC 10.4. Continue clindamycin and nebulized treatments for aspiration PNA. On room air this morning. INR therapeutic. Start bladder retraining.
[2017-11-03] MEDS ORDERED: FALL RISK - PHARMACY CONSULT MC ONE (11:27)
[2017-11-03] MEDS: ALBUTEROL/IPRATROPIUM 2.5mg-0.5mg/3ml NEB AEROSOL SCH ×2 (11:31→19:13)
[2017-11-03] MEDS ORDERED: WARFARIN 2 MG TABLET PO SCH (12:00)
[2017-11-03] MEDS: CYCLOBENZAPRINE 10 MG TABLET PO PRN ×2 (14:00→22:36)
[2017-11-03] MEDS ORDERED: FUROSEMIDE 20 MG/2 ML INJECTION IVP ONE (18:54)
[2017-11-03] MEDS ORDERED: NS 1,000 ML IV SCH (19:00)
[2017-11-03] MEDS: HALOPERIDOL 5 MG/ML INJECTION IVP PRN (22:50)
[2017-11-04] MEDS: HALOPERIDOL 5 MG/ML INJECTION IVP PRN (02:35)
[2017-11-04] MEDS: HYDROCODONE/APAP 5mg/325mg TABLET PO PRN ×2 (04:12→10:15)
[2017-11-04] MEDS: CLINDAMYCIN PB 600 MG/50 ML BAG IV SCH (06:46)
[2017-11-04] MEDS: ALBUTEROL/IPRATROPIUM 2.5mg-0.5mg/3ml NEB AEROSOL SCH (07:04)
--- NOTE | 2017-11-04 07:31 | Pharmacy Consult ---
Pharmacy Consult-Warfarin - Laboratory Information 11/01/17 11/01/17 11/01/17 07:21 07:21 07:21 Hgb 13.6 Hct 43.1 INR 3.35 H AST 26 ALT 17 Albumin 4.0 11/02/17 11/02/17 11/03/17 04:53 04:53 04:02 Hgb 11.5 L D Hct 37.4 L D INR 3.83 H 2.88 H AST ALT Albumin 11/03/17 11/04/17 04:02 05:05 Hgb 12.5 L Hct 40.4 L INR 2.46 H AST ALT Albumin - Consult Information INR is in target range. Warfarin 2.5mg is ordered for today, Thank you.
[2017-11-04] MEDS: CEFTRIAXONE 1 G in NS 100 ML IV SCH (08:13)
[2017-11-04] MEDS: NS 1,000 ML IV SCH (08:13)
--- NOTE | 2017-11-04 08:15 | XRay Report ---
Indication: pneumonia PROCEDURE: XR chest 1V: Encounter: Initial Comparison: November 01, 2017 Findings: Increasing right effusion with worsening compressive atelectasis in the right middle and right lower lobes. Severe airspace consolidation in the right lung remains. Left lung shows developing mild edema with a small effusion. No pneumothorax. Heart size and mediastinal contours are stable allowing for rotation. Impression: Developing pulmonary edema and increasing right pleural effusion. .
[2017-11-04] MEDS: LACTOBACILLUS (15B cfu) CAPSULE PO SCH ×2 (08:58→12:20)
[2017-11-04] MEDS: POLYETHYL GLYCOL 3350 17gm PACKET PO SCH (08:58)
[2017-11-04] MEDS: GABAPENTIN 300 MG CAPSULE PO SCH (08:58)
[2017-11-04] MEDS: LISINOPRIL 20 MG TABLET PO SCH (08:59)
[2017-11-04] MEDS: AMLODIPINE 5 MG TABLET PO SCH (08:59)
[2017-11-04] MEDS: CLOPIDOGREL 75 MG TABLET PO SCH (08:59)
[2017-11-04] MEDS: GUAIFENESIN LA 600 MG TABLET PO SCH (08:59)
--- NOTE | 2017-11-04 11:29 | Discharge Summary ---
Discharge Information Date of admission: 11/01/17 08:18 Anticipated date of discharge: 11/04/17 Attending Physician: Giovanna Vaz MD Primary care physician: Zuhair Cyr MD - Discharge Diagnosis (1) UTI (urinary tract infection) Status: Acute Problems Reviewed?: Yes Sepsis indicated by tachypnea and leukocytosis (borderline lactate at 1.9, borderline total bilirubin at 1.90) - resolved. Right sided pneumonia. Acute respiratory failure with hypoxia. Acute UTI (POA) Enterobacter cloacae. Chronic a-fib. Chronic anticoagulation with warfarin. Hypertension. Chronic lower extremity wounds - follow with Dr. Lemus and wound care. Chronic L1-L4 compression fractures. - Laboratory Labs: 11/03/17 04:02 11/03/17 04:02 Laboratory Tests 11/01/17 11/02/17 11/03/17 07:21 04:53 04:02 INR 3.35 H 3.83 H 2.88 H 11/04/17 05:05 INR 2.46 H - Microbiology Microbiology 11/01/17 09:22 Peripheral/Iv Start Blood Culture - Preliminary No Growth After 3 Days 11/01/17 09:14 Peripheral/Iv Start Blood Culture - Preliminary No Growth After 3 Days 11/01/17 07:35 Urine, Voided (Cc/notcc) Urine Culture - Final Enterobacter cloacae - Radiology Radiology: Date of Exam: 11/01/17 PROCEDURE: CHEST 2-VIEWS UPRIGHT (PA & LAT) FINDINGS: Recurrent airspace consolidation in the right lung involving all lobes. Left lung is stable and grossly clear. Small right effusion. No pneumothorax. Cardiac silhouette remains enlarged. Mediastinal contours are stable. Pulmonary vascularity is normal. Impression: Right sided aspiration or pneumonia. = = = = = = = = = = = = = = = = = = = = = = = = = = = = = = = = = = = = = = = = = = = = = = = = = = = = = = = = = = = Date of Exam: 11/04/17 PROCEDURE: XR chest 1V: Findings: Increasing right effusion with worsening compressive atelectasis in the right middle and right lower lobes. Severe airspace consolidation in the right lung remains. Left lung shows developing mild edema with a small effusion. No pneumothorax. Impression: Developing pulmonary edema and increasing right pleural effusion. = = = = = = = = = = = = = = = = = = = = = = = = = = = = = = = = = = = = = = = = = = = = = = = = = = = = = = = = = = = Date of Exam: 11/01/17 PROCEDURE: XR lumbar spine 2-3V: Findings: Chronic appearing L1-L4 mild compression fractures. There is grade 2 spondylolisthesis of L5 on S1 with bilateral L5 spondylolysis. Mild disk space narrowing at L2-L3. Degenerative facet disease at L3-S1. Arterial vascular calcifications. Bony demineralization. Orthopedic hardware in the right femur. Large amount of stool in the colon with mildly distended gas-filled small bowel loops. Cholecystectomy clips. Impression: Chronic appearing L1-L4 mild compression fractures. History of Present Illness HPI: Leo Del Castillo (Bill) is a very pleasant 87-year-old patient of Dr. Cyr who currently resides in independent living with his in [place], [place]. His is present on exam and reports that over the past few days, she has noticed that he hasn't had as much energy or strength, requiring more assistance with transfers from his wheel chair. She attributed his generalized fatigue and weakness to the fact that they are currently moving. He reports that this morning around 0230 he took a drink of water which he choked on and resulted in a "coughing fit". Around 0530, he finally woke his , Shania, to get assistance to the bathroom. She noted that he was continuing to cough and appeared short of breath. In the bathroom, he was too weak to assist with transfers and ultimately slid to the floor. He denies any injury. No head injury, loss of consciousness, syncope or dizziness. EMS was contacted as he was unable to get up and was transferred to [facility] ED for further evaluation. While in the ED, he was became hypoxic on room air at 87% which improved with 2L NC. Labs revealed leukocytosis (WBC 15.4) with 5% bands. Electrolytes were unremarkable. Lactate was 1.9+ and troponin was <0.012. CXR revealed right lower lobe aspiration and/or pneumonia. UA revealed UTI with 50-200 WBC, WBC clumps and 2+ bacteria. He denies any recent fevers, chills, chest pain, shortness of breath, abdominal pain, nausea, vomiting or dysuria. Due to his sepsis as indicated by his leukocytosis and tachypnea most likely secondary to his UTI and pneumonia, Dr. Vaz was consulted and he was admitted into inpatient status for further evaluation, close respiratory and hemodynamic monitoring, IV antibiotics and respiratory cares. He has a past medical history of a-fib for which he is on chronic anticoagulation with warfarin (INR 3.35 on admission) and hypertension. Objective Vital signs: Temperature 97.6 F 11/04/17 04:33 Pulse Rate 90 11/04/17 04:33 Respiratory Rate 16 11/04/17 07:04 Blood Pressure 177/84 H 11/04/17 04:33 Pulse Oximetry 92 11/04/17 07:04 Height/Weight/BMI: Height 1.83 m Weight 87 kg Body Mass Index 25.4 - Constitutional Present: no acute distress, well nourished, well developed - Routine HEENT Exam Head: Present: normocephalic Eye: Absent: conjunctival icterus, scleral injection - Routine Respiratory Exam Present: decreased breath sounds - Routine Cardiovascular Exam Present: S1, S2, irregularly irregular - Routine Abdominal Exam Present: soft, normoactive bowel sounds, non distended - Routine Extremities Exam Present: edema (1+) Comments: inversion deformity to both feet - Routine Back/Spine/Pelvis Exam Back/Spine: Present: kyphosis - Routine Skin Exam Present: dry, warm - Routine Neurological Exam Present: alert, oriented X3, normal speech - Routine Psychiatric Exam Present: normal thought process, cooperative Hospital Course This is a general summary of the patient's hospital course. For more details refer to the complete medical record. Hospital course: 10/31/17 Admitted to inpatient status. He was requiring 1-2L of oxygen to maintain saturations. He was initially started on Rocephin and azithromycin, but azithromycin was replaced with clindamycin d/t concerns for aspiration. Nebulized treatments were ordered. Speech therapy was consulted, but there was no evidence of aspiration during assessment and a soft diet with thin liquids was recommended. Wound care was also consulted for management of his chronic wounds. 11/02/17 Urine culture showing gram negative lillian growth. Rocephin continued. WBC decreased to 11.0. INR supratherapeutic at 3.83, Coumadin held. Foot Wound dressing changes every 3 days as per wound team 11/03/17 Urine culture + Enterobacter cloacae, sensitive to Rocephin. WBC 10.4. Continue clindamycin and nebulized treatments for aspiration PNA. On room air this morning. INR therapeutic. Started bladder retraining. 11/04/17 Patient debilitated, needs [id number] lift. Recommend SNF for PT/OT - accepted to [facility]. Shoemaker discontinued. Monitor for urinary retention. Rx Omnicef for UTI, 6 more days. Stop clindamycin. Continue DuoNeb treatments. Continue Coumadin 2.5 mg daily. Recheck CBC, BMP, INR in 3 days. F/U with Dr. Cyr in 1 week. I called pt's , Shania, and updated her on the discharge plan. Time spent with patient: discharge greater than 30 minutes Resuscitation Status: Do Not Resuscitate Discharge Plan - Discharge Disposition Discharge Date: 11/04/17 Disposition: 03 To SNU Not [facility] (SNF) *Condition: Stable Reason For Visit (Visit label in EMR): right lower lobe pneumonia,uti - Discharge Medications *Discharge Medications: New Hydrocodone/APAP 5/325 [[place] 5/325] 1 - 2 tab PO Q6H PRN #20 tab PRN Reason: Pain Albuterol/Ipratropium [Duoneb] 3 ml AEROSOL RTBID each Albuterol/Ipratropium [Duoneb] 3 ml AEROSOL RTQID PRN each PRN Reason: Shortness Of Air/Wheezing Cefpodoxime [Vantin] 100 mg PO BID #12 tab Cyclobenzaprine [Flexeril] 10 mg PO TID PRN #20 tab PRN Reason: Muscle Spasm Warfarin [Coumadin] 2.5 mg PO NOON tab Continue PEG 3350 17gm PACKET [Miralax] 17 gm PO DAILY #5 packet Cholecalciferol (Vitamin D3) [Vitamin D3] 1,000 unit PO DAILY Gabapentin 300 mg PO DAILY Furosemide [Lasix 20 mg Tab] 20 mg PO PRN PRN PRN Reason: swelling Metoprolol Succinate (XL) [Toprol Xl] 50 mg PO DAILY Lisinopril [Prinivil] 20 mg PO DAILY Clopidogrel Bisulfate [Clopidogrel] 75 mg PO DAILY Amlodipine Besylate [Norvasc] 5 mg PO DAILY Discontinued Warfarin Sodium 2 mg PO MoWeFr@0800 #0 Hydrocodone/Acetaminophen [Hydrocodon-Acetaminophen 5-325] 1 tab PO Q5H PRN PRN Reason: Pain Warfarin [Coumadin] 4 mg PO SUTUTHSA@0800 Hydrocodone/Acetaminophen [Hydrocodon-Acetaminophen 5-325] 1 tab PO Q6HR PRN PRN Reason: Pain - Discharge Packet/Instructions *Diet: Regular diet. Consistency: soft. Liquids: thin *Activity: PT/OT *Pain Management/Treatment: [place], Flexeril as needed *Wound Care: Continue to follow up with wound care, Dr. Lemus. Wound tx plan: To R lateral foot: Continue to monitor, apply Mepilex for extra cushioning , change PRN, float bilateral heels. L buttock: apply Mepilex, change q 3 days. Additional Instructions: Swallow precautions. 1) soft diet with thin liquids. 2) small, single sips/bites - very important. 3) upright with all oral intake. Monitor for urinary retention; bladder scan as needed. He had a catheter during hospitalization, may need straight catheter if he has significant retention. *Expected Signs/Symptoms: Weakness, fatigue should improve with therapy. You may have a persistent cough for several days. *Notify Physician if: difficulty breathing, fever, chest pain, choking, stroke- like symptoms, or any new concerns *During Business Hours Contact: Dr. Cyr's office *After Business Hours Contact: The on-call provider for Dr. Cyr. *Pending Lab/Results: No Pending Lab Outpatient Orders: BMP - Basic Metabolic - [facility] Time Frame: 3 Days, Location: None Selected CBC w Auto [id number] Time Frame: 3 Days, Location: None Selected INR - [facility] Time Frame: 3 Days, Location: None Selected - Referrals/Follow Up *Referrals/Follow Up: Zuhair Cyr MD [Primary Care Provider] - 1 Week - Patient Handouts - Dismissal Complete Discharge Instructions are:: Complete Physician Narrative - Narrative Physician: Giovanna Vaz MD Attestation Narrative: Date: 11/04/17 Time: 1126 I have independently interviewed and examined patient. Patient chart reviewed. Case discussed with my MANAGER POLICY. Care plan developed with my supervision, agree with above. A pleasant 87-year-old male patient admitted with findings concerning for sepsis originating from right sided pneumonia and also concern for UTI. Urine culture grew out Enterobacter cloacae. Blood cultures are negative at the time of discharge. With concern for aspiration pneumonia, patient treated with IV clindamycin and Rocephin during hospital stay. Patient evaluated by PT/OT, recommendation for care home. Patient will be discharged for further physical therapy at [facility] in [place]. Patient will be on further 6 a day course of oral cefpodoxime based on culture and sensitivity results. Physical exam: AAO x 3, NAD. Positive scoliosis and kyphosis. PERRLA, EOMI S1 and S2 heard on auscultation, irregularly irregular heart sounds. Lungs clear to auscultation bilaterally, no wheezing, no crackles Abdomen soft, nontender, positive bowel sounds 1+ edema bilateral lower extremities. Addendum entered and electronically signed by Megan Obrien APRN 11/04/17 13: 18: *Wound Care: Continue to follow up with wound care, Dr. Lemus. Wound tx plan: To R lateral foot: Continue to monitor, apply Mepilex for extra cushioning , change PRN, float bilateral heels. L buttock: apply Mepilex, change q 3 days. Additional Instructions: Swallow precautions. 1) soft diet with thin liquids. 2) small, single sips/bites - very important. 3) upright with all oral intake. Monitor for urinary retention; bladder scan as needed. He had a catheter during hospitalization, may need straight catheter if he has significant retention. Outpatient Orders: BMP - Basic Metabolic - [facility] Time Frame: 3 Days CBC w Auto [id number] Time Frame: 3 Days INR - [facility] Time Frame: 3 Days
[2017-11-04] MEDS ORDERED: WARFARIN 2.5 MG TABLET PO SCH (12:00)
[2017-11-04 12:12] VITALS: BP 142/69; PULSE 81; RESP 18; TEMP 98; O2SAT 95
--- NOTE | 2017-11-04 13:09 | Extended Care Facility Orders ---
Admission Orders Admit to:: Residential Allergies/Adverse Reactions: Allergies No Known Allergies Allergy (Verified 11/01/17 16:35) Admitting Diagnosis: right lower lobe pneumonia,uti Admitting Physician: Giovanna Vaz MD Attending Physician: Giovanna Vaz MD Code Status: Do Not Resuscitate Anticiapted Length of Stay: 30 days or less Rehab Potential: fair Rehab Prognosis: fair Diet: 11/01/17 Lunch Regular Diet [DIET] Diet Modifications: Fluid Consistency: REGLIQU Food Consistency: SOFT May use Facility Protocol or Standing Orders: Yes May have flu vaccine: Yes Evaluations/Treatment: PT, OT Residential Certification: I certify that SNF services are required to be given on an inpatient basis because of the patient's need for [facility] care on a continuing basis for the condition(s) for which he/she received inpatient hospital services prior to his/her transfer to the SNF. SNF inpatient care is necessary for the following reasons: Indication for Residential: Wound Care/Assessment - Additional Information In Event of Arrest: Do Not Start CPR Referrals: Zuhair Cyr MD [Primary Care Provider] - 1 Week
== END 2017-11-04 14:10 | DRG 871 ==
LOC: ED 06:45 → EDHOLD 08:18 → MED 08:48
PROVIDERS: ADMIT Internal Medicine; ATTEND Internal Medicine